=== PATIENT | male | born 1955 | race Caucasian/White ===

== ENCOUNTER 2019-10-07 06:56 | Emergency (ER) | payer MEDICAID, OTHER ==
[~2019-10-07] VITALS: Ht 165 cm; Wt 59.5 kg
[2019-10-07] MEDS ORDERED: LACTATED RINGERS 1,000 ML IV ONE (07:17)
[2019-10-07 07:33] LABS: BASOPHILS # (AUTO) 0.1 10^3/uL (0.0-0.1); BASOPHILS % (AUTO) 1 % (0-10); EOSINOPHILS # (AUTO) 0.1 10^3/uL (0.0-0.3); EOSINOPHILS % (AUTO) 1 % (0-10); HEMATOCRIT 42 % (40-54); HEMOGLOBIN 14.8 G/DL (13.3-17.7); LYMPHOCYTES # (AUTO) 1.8 X 10^3 (1.0-4.0); LYMPHOCYTES % (AUTO) 21 % (12-44); MEAN CORPUSCULAR HEMOGLOBIN 34 PG (25-34); MEAN CORPUSCULAR HGB CONC 35 G/DL (32-36); MEAN CORPUSCULAR VOLUME 96 FL (80-99); MONOCYTES # (AUTO) 0.7 X 10^3 (0.0-1.0); MONOCYTES % (AUTO) 8 % (0-12); NEUTROPHILS # (AUTO) 6.1 X 10^3 (1.8-7.8); NEUTROPHILS % (AUTO) 69 % (42-75); PLATELET COUNT 161 10^3/uL (130-400); RED CELL DISTRIBUTION WIDTH 13.2 % (10.0-14.5); WHITE BLOOD COUNT 8.7 10^3/uL (4.3-11.0)
[2019-10-07 07:41] LABS: PROTHROMBIN TIME PATIENT 13.6 SEC (12.2-14.7)
[2019-10-07 07:41] LABS: BILIRUBIN,URINE NEGATIVE (NEGATIVE); CLARITY,URINE CLEAR; COLOR,URINE YELLOW; GLUCOSE, URINE (UA) 3+ (NEGATIVE); KETONES,URINE NEGATIVE (NEGATIVE); LEUKOCYTE ESTERASE ,URINE NEGATIVE (NEGATIVE); NITRITE,URINE NEGATIVE (NEGATIVE); PROTEIN,URINE NEGATIVE (NEGATIVE)
--- NOTE | 2019-10-07 07:41 | ED General ---
General Chief Complaint: Abdominal/GI Problems Stated Complaint: ABD PAIN,SOB,FEELS COLD Nursing Triage Note: COMPLAINS OF ABD PAIN WITH VOMITING. RECENT MOVE FROM [place]. STATES HE WAS AT HIS DR THIS WEEK. Nursing Sepsis Screen: No Definite Risk Source of Information: Patient Exam Limitations: No Limitations History of Present Illness Date Seen by Provider: Oct 07, 2019 Time Seen by Provider: 07:18 Initial Comments Here with report of chills, body aches, cough, vomiting and overall not feeling well. Complains of shortness of breath or pain with deep breathing to his upper chest. Overall feels weak. Apparently had blood sugar of 1000 mg earlier this visit with Dr. Bocanegra on Saturday. He has been taking his short and long-acting insulin and apparently the sugar is a little better. Previously drank quite a bit of alcohol daily. Had quit but did have a few drinks of beer the other day. Denies drug abuse currently but does have history in the past. Denies diarrhea today but has had some intermittent diarrhea. Denies fevers but does states that he had significant chills especially yesterday. 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 Timing/Duration: 3-4 Days Severity: Moderate Modifying Factors: improves with Rest Associated Systoms: Chest Pain, Cough, Fever/Chills, Nausea/Vomiting; No Shortness of Air; Weakness Allergies and Home Medications Allergies Coded Allergies: No Known Drug Allergies (Unverified , 10/07/19) Patient Home Medication List Home Medication List Reviewed: Yes Review of Systems Review of Systems Constitutional: see HPI, chills; No fever; malaise, weakness EENTM: No nose congestion, No throat pain Respiratory: cough; No wheezing Cardiovascular: see HPI; No edema, No palpitations Gastrointestinal: diarrhea, nausea, vomiting Genitourinary: No dysuria, No frequency Musculoskeletal: no symptoms reported Skin: no symptoms reported All Other Systems Reviewed Negative Unless Noted: Yes Past Ddjgxjm-Yiyhao-Otczbc Hx Past Med/Social Hx: Reviewed Nursing Past Med/Soc Hx Patient Social History Alcohol Use: Past History Recreational Drug Use: No Smoking Status: Former Smoker Recent Foreign Travel: No Contact w/Someone Who Travel: No Recent Infectious Disease Expo: No Recent Hopitalizations: No Past Medical History Surgeries: Yes (SPLEENECTOMY) Orthopedic Respiratory: No Cardiac: Yes Hypertension Neurological: Yes Dementia Genitourinary: No Gastrointestinal: Yes Hepatitis Musculoskeletal: No Endocrine: Yes Diabetes, Insulin dep Psychosocial: Yes Bipolar Family Medical History Reviewed Nursing Family Hx No Pertinent Family Hx Physical Exam-Suspected Sepsis Physical Exam Vital Signs Vital Signs - First Documented 10/07/19 07:00 Temp 36.6 Pulse 92 Resp 16 B/P (MAP) 156/101 (119) Pulse Ox 95 O2 Delivery Room Air Capillary Refill : Less Than 3 Seconds Blood Pressure Mean: 119 Height, Weight, BMI Height: '" Weight: lbs. oz. kg; 21.00 BMI Method: General Appearance: No Apparent Distress, Thin HEENT: PERRL/EOMI, Pharynx Normal Neck: Non Tender, Supple Respiratory: Lungs Clear, Normal Breath Sounds Cardiovascular: No Murmur, Tachycardia Gastrointestinal: Non Tender, Soft, Abnormal Bowel Sounds (hyperactive); No Guarding, No Mass, No Rebound Back: No Vertebral Tenderness; No CVA Tenderness (L); CVA Tenderness (R) Extremity: Normal Inspection, Normal Range of Motion, Non Tender Neurologic/Psychiatric: Alert, Oriented x3 Skin: normal color, warm/dry Focused Exam Lactate Level 10/07/19 07:27: Lactic Acid Level 1.99 Lactic Acid Level Laboratory Tests Test 10/07/19 07:27 Lactic Acid Level 1.99 MMOL/L (0.50-2.00) Procedures/Interventions Splinting and Joint Reduction : Progress Right ankle with lateral rotation and posterior dislocation Progress/Results/Core Measures Suspected Sepsis Recent Fever Within 48 Hours: No Infection Criteria Present: None New/Unexplained Altered Menta: No Sepsis Screen: No Definite Risk SIRS Temperature: Pulse: 92 Respiratory Rate: 16 Laboratory Tests 10/07/19 07:05: White Blood Count 8.7 Blood Pressure 156 /101 Mean: 119 10/07/19 07:27: Lactic Acid Level 1.99 Laboratory Tests 10/07/19 07:05: Creatinine 0.93, INR Comment 1.0, Platelet Count 161, Total Bilirubin 0.8 Results/Orders Lab Results Laboratory Tests Test 10/07/19 07:05 10/07/19 07:27 10/07/19 07:34 Range/Units White Blood Count 8.7 4.3-11.0 10^3/uL Red Blood Count 4.38 4.35-5.85 10^6/uL Hemoglobin 14.8 13.3-17.7 G/DL Hematocrit 42 40-54 % Mean Corpuscular Volume 96 80-99 FL Mean Corpuscular Hemoglobin 34 25-34 PG Mean Corpuscular Hemoglobin Concent 35 32-36 G/DL Red Cell Distribution Width 13.2 10.0-14.5 % Platelet Count 161 130-400 10^3/uL Mean Platelet Volume 13.0 H 7.4-10.4 FL Neutrophils (%) (Auto) 69 42-75 % Lymphocytes (%) (Auto) 21 12-44 % Monocytes (%) (Auto) 8 0-12 % Eosinophils (%) (Auto) 1 0-10 % Basophils (%) (Auto) 1 0-10 % Neutrophils # (Auto) 6.1 1.8-7.8 X 10^3 Lymphocytes # (Auto) 1.8 1.0-4.0 X 10^3 Monocytes # (Auto) 0.7 0.0-1.0 X 10^3 Eosinophils # (Auto) 0.1 0.0-0.3 10^3/uL Basophils # (Auto) 0.1 0.0-0.1 10^3/uL Prothrombin Time 13.6 12.2-14.7 SEC INR Comment 1.0 0.8-1.4 Activated Partial Thromboplast Time 26 24-35 SEC Sodium Level 134 L 135-145 MMOL/L Potassium Level 3.8 3.6-5.0 MMOL/L Chloride Level 99 98-107 MMOL/L Carbon Dioxide Level 24 21-32 MMOL/L Anion Gap 11 5-14 MMOL/L Blood Urea Nitrogen 14 7-18 MG/DL Creatinine 0.93 0.60-1.30 MG/DL Estimat Glomerular Filtration Rate > 60 BUN/Creatinine Ratio 15 Glucose Level 389 H 70-105 MG/DL Calcium Level 9.2 8.5-10.1 MG/DL Corrected Calcium 9.8 8.5-10.1 MG/DL Total Bilirubin 0.8 0.1-1.0 MG/DL Aspartate Amino Transf (AST/SGOT) 421 H 5-34 U/L Alanine Aminotransferase (ALT/SGPT) 377 H 0-55 U/L Alkaline Phosphatase 114 40-136 U/L Troponin I < 0.028 <0.028 NG/ML Total Protein 7.6 6.4-8.2 GM/DL Albumin 3.2 3.2-4.5 GM/DL Lactic Acid Level 1.99 0.50-2.00 MMOL/L Urine Color YELLOW Urine Clarity CLEAR Urine pH 7.0 5-9 Urine Specific [place] 1.010 L 1.016-1.022 Urine Protein NEGATIVE NEGATIVE Urine Glucose (UA) 3+ H NEGATIVE Urine Ketones NEGATIVE NEGATIVE Urine Nitrite NEGATIVE NEGATIVE Urine Bilirubin NEGATIVE NEGATIVE Urine Urobilinogen 0.2 < = 1.0 MG/DL Urine Leukocyte Esterase NEGATIVE NEGATIVE Urine RBC (Auto) NEGATIVE NEGATIVE Urine RBC NONE /HPF Urine WBC NONE /HPF Urine Squamous Epithelial Cells RARE /HPF Urine Crystals PRESENT H /LPF Urine Amorphous Sediment RARE LAVERNE PHOSPHATE H /LPF Urine Bacteria NEGATIVE /HPF Urine Casts NONE /LPF Urine Mucus NEGATIVE /LPF Urine Culture Indicated NO Micro Results Microbiology 10/07/19 Influenza Types A,B Antigen (TEZ) - Final, Complete My Orders Orders - PRISCILLA DEWEY MD Cbc With Automated Diff (10/07/19 07:17) Comprehensive Metabolic Panel (10/07/19 07:17) Blood Culture (10/07/19 07:17) Sputum Culture (10/07/19 07:17) Urinalysis (10/07/19 07:17) Urine Culture (10/07/19 07:17) Protime With Inr (10/07/19 07:17) Partial Thromboplastin Time (10/07/19 07:17) Chest 1 View, Ap/Pa Only (10/07/19 07:17) Ed Iv/Invasive Line Start (10/07/19 07:17) Ekg Tracing (10/07/19 07:17) Troponin I (10/07/19 07:17) Vital Signs Adult Sepsis Patie Q15M (10/07/19 07:17) O2 (10/07/19 07:17) Remove Rings In Anticipation O (10/07/19 07:17) Lactic Acid Analyzer (10/07/19 07:17) Influenza A And B Antigens (10/07/19 07:17) Lactated Ringers (Lr 1000 Ml Iv Solution (10/07/19 07:17) Ct Abdomen/Pelvis W (10/07/19 08:17) Iohexol Injection (Omnipaque 350 Mg/Ml 1 (10/07/19 08:30) Received Contrast (Hold Metformin- Contr (10/07/19 08:30) Ns (Ivpb) (Sodium Chloride 0.9% Ivpb Bag (10/07/19 08:30) Medications Given in ED Current Medications Medications Dose Ordered Sig/Geno Route Start Time Stop Time Status Last Admin Dose Admin Iohexol 100 ml ONCE ONCE IV 10/07/19 08:30 10/07/19 08:31 DC 10/07/19 08:45 80 ML Lactated Ringer's 1,000 ml @ 0 mls/hr Q0M ONCE IV 10/07/19 07:17 10/07/19 07:24 DC 10/07/19 07:35 1,000 MLS/HR Sodium Chloride 100 ml ONCE ONCE IV 10/07/19 08:30 10/07/19 08:31 DC 10/07/19 08:45 80 ML Vital Signs/I&O 10/07/19 07:00 Temp 36.6 Pulse 92 Resp 16 B/P (MAP) 156/101 (119) Pulse Ox 95 O2 Delivery Room Air Capillary Refill : Less Than 3 Seconds Blood Pressure Mean: 119 Progress Note : Progress Note Seen and evaluated. IV, labs, EKG, chest x-ray, UA, influenza screen and LR [address] Monitor [address]. CT abdomen and pelvis ordered. 114: Labs reviewed. No significant findings other than nodularity of the liver. Does have a long alcohol history and I believe that is the cause of that. He is further evaluation through [facility] including for his elevated liver enzymes. Overall he feels better. Discharged home with return precautions. Patient verbalized understanding instructions and agreement with plan. ECG Initial ECG Impression Date: Oct 07, 2019 Initial ECG Impression Time: 07:23 Initial ECG Rate: 87 Initial ECG Rhythm: Normal Sinus Initial ECG Comparisson: No Previous ECG Available Comment Sinus rhythm with normal axis. No evidence of ST elevation [place]. No previous available for comparison. Interpreted by me. Diagnostic Imaging Diagonstic Imaging: Xray Plain Films/CT/US/NM/MRI: chest Comments [facility] [place], [place] NAME: WAYNE GIBSON MED REC#: [id number] PT STATUS: REG ER : 1955 PHYSICIAN: PRISCILLA DEWEY MD ADMIT DATE: 10/07/19/ER Draft Date of Exam:10/07/19 CHEST 1 VIEW, AP/PA ONLY INDICATION: Shortness of breath, abdominal pain. TECHNIQUE: Single view chest 7:50 AM. CORRELATION STUDY: None FINDINGS: The heart size, mediastinal configuration and pulmonary vascularity are within normal limits. The lungs are clear with no consolidating infiltrate. There is no significant effusion or pneumothorax. IMPRESSION: 1. Negative for acute abnormality of the chest. Dictated on workstation # [id number] Dict: 10/07/19 0758 Trans: 10/07/19 0758 DO [id number] Interpreted by: IWONA OLIVER DO Electronically signed by: Avani Imaging: CT Plain Films/CT/US/NM/MRI: abdomen, pelvis Comments [facility]. [place], [place] NAME: WAYNE GIBSON [facility] REC#: [id number] PT STATUS: REG ER : 1955 PHYSICIAN: PRISCILLA DEWEY MD ADMIT DATE: 10/07/19/ER Draft Date of Exam:10/07/19 CT ABDOMEN/PELVIS W EXAMINATION: CT Abdomen and Pelvis with intravenous contrast. TECHNIQUE: Multiple contiguous axial images were obtained through the abdomen and pelvis after the uneventful administration of intravenous contrast. All CT scans use one or more of the following dose optimizing techniques: automated exposure control, MA and/or KvP adjustment based on a patient size and exam type, or iterative reconstruction. HISTORY: Abdominal pain. COMPARISON: None available. FINDINGS: Limited views of the lower thorax show mild atelectasis. There is small fat-containing ascites indicating a hiatal hernia. The liver is enlarged and the surface appears mildly nodular. There is likely steatosis but the absence of the spleen makes diagnosis difficult as this is used as a reference standard for comparison. There is no biliary ductal dilation. The gallbladder is normal. The pancreas is normal. The spleen is surgically absent. The adrenal glands are normal. Cysts are seen in both kidneys. No suspicious renal lesions. There is no hydronephrosis. The urinary bladder is normal. There are no dilated loops of large or small bowel. No obstruction or inflammation. No free fluid in the pelvis. No free air. No abdominal or pelvic lymphadenopathy. The aorta is normal in caliber without aneurysm. There are no suspicious osseus lesions. IMPRESSION: 1. Enlarged liver with a mildly nodular surface which may represent fibrosis or cirrhosis. The liver is likely steatotic as well although the absence of the spleen (which is the internal standard) and post contrast exams makes diagnosis difficult. 2. Small fat-containing ascites containing a hiatal hernia. Dictated on workstation # [id number] Dict: 10/07/19 0900 Trans: 10/07/19912 [id number] Interpreted by: FERNANDEZ GASPAR MD Electronically signed by: Departure Impression Primary Impression: Upper respiratory infection Qualified Codes: J06.9 - Acute upper respiratory infection, unspecified Additional Impressions: Elevated liver enzymes Reflux gastritis Disposition: HOME, SELF-CARE Condition: Stable Departure-Patient Inst. Decision time for Depature: 10:20 Referrals: NO,LOCAL PHYSICIAN (PCP/Family) Primary Care Physician Patient Instructions: Viral Upper Respiratory Infection, Adult (DC), Acute Abdomen (Belly Pain), Adult (DC) Add. Discharge Instructions: All discharge instructions reviewed with patient and/or family. Voiced understanding. Follow up with [facility] regarding her liver enzymes. Continue your insulin dosing for your high blood sugar. Clear liquid or light diet today and then advance as tolerated. Continue to take stomach medicines as previous prescribed. Return for worse pain, fever, vomiting, weakness, breathing problems or other concerns as needed. Scripts Ondansetron HCl (Ondansetron HCl) 4 Mg Tablet 4 MG PO Q6H PRN for NAUSEA/VOMITING, #10 TAB 0 Refills Prov: PRISCILLA DEWEY MD 10/07/19 Copy Copies To 1: AMARA BOCANEGRA MD, TIMOTHY D MD Oct 07, 2019 07:41
[2019-10-07 07:45] LABS: ALANINE AMINOTRANSFERASE 377 U/L (0-55); ALBUMIN 3.2 GM/DL (3.2-4.5); ALKALINE PHOSPHATASE 114 U/L (40-136); BILIRUBIN,TOTAL 0.8 MG/DL (0.1-1.0); BUN/CREATININE RATIO 15; CALCIUM 9.2 MG/DL (8.5-10.1); CARBON DIOXIDE 24 MMOL/L (21-32); CHLORIDE 99 MMOL/L (98-107); CREATININE SERUM 0.93 MG/DL (0.60-1.30); GFR ESTIMATED > 60; GLUCOSE 389 MG/DL (70-105); POTASSIUM 3.8 MMOL/L (3.6-5.0); SODIUM 134 MMOL/L (135-145); TOTAL PROTEIN 7.6 GM/DL (6.4-8.2)
[2019-10-07 07:47] LABS: BACTERIA,URINE NEGATIVE /HPF; SQUAMOUS EPITHELIAL CELL,UR RARE /HPF
[2019-10-07 07:48] LABS: AMORPHOUS SEDIMENT,UR RARE AMOR PHOSPHATE /LPF
--- NOTE | 2019-10-07 07:59 | Diagnostic Imaging Report ---
INDICATION: Shortness of breath, abdominal pain. TECHNIQUE: Single view chest 7:50 AM. CORRELATION STUDY: None FINDINGS: The heart size, mediastinal configuration and pulmonary vascularity are within normal limits. The lungs are clear with no consolidating infiltrate. There is no significant effusion or pneumothorax. IMPRESSION: 1. Negative for acute abnormality of the chest. Dictated by: Dictated on workstation # [id number]
[2019-10-07] MEDS ORDERED: NS 100 ML (IVPB) BAG IV ONE (08:30)
[2019-10-07] MEDS ORDERED: HOLD METFORMIN - RECEIVED CONTRAST 20 ML VIAL IV SCH (08:30)
[2019-10-07] MEDS ORDERED: IOHEXOL 350 MG/ML 100 ML (OMNIPAQUE 350) VIAL IV ONE (08:30)
--- NOTE | 2019-10-07 09:13 | Diagnostic Imaging Report ---
EXAMINATION: CT Abdomen and Pelvis with intravenous contrast. TECHNIQUE: Multiple contiguous axial images were obtained through the abdomen and pelvis after the uneventful administration of intravenous contrast. All CT scans use one or more of the following dose optimizing techniques: automated exposure control, MA and/or KvP adjustment based on a patient size and exam type, or iterative reconstruction. HISTORY: Abdominal pain. COMPARISON: None available. FINDINGS: Limited views of the lower thorax show mild atelectasis. There is small fat-containing ascites indicating a hiatal hernia. The liver is enlarged and the surface appears mildly nodular. There is likely steatosis but the absence of the spleen makes diagnosis difficult as this is used as a reference standard for comparison. There is no biliary ductal dilation. The gallbladder is normal. The pancreas is normal. The spleen is surgically absent. The adrenal glands are normal. Cysts are seen in both kidneys. No suspicious renal lesions. There is no hydronephrosis. The urinary bladder is normal. There are no dilated loops of large or small bowel. No obstruction or inflammation. No free fluid in the pelvis. No free air. No abdominal or pelvic lymphadenopathy. The aorta is normal in caliber without aneurysm. There are no suspicious osseus lesions. IMPRESSION: 1. Enlarged liver with a mildly nodular surface which may represent fibrosis or cirrhosis. The liver is likely steatotic as well although the absence of the spleen (which is the internal standard) and post contrast exams makes diagnosis difficult. 2. Small fat-containing ascites containing a hiatal hernia. Dictated by: Dictated on workstation # [id number]
[2019-10-07] MEDS ORDERED: ONDA4TAB10 PO (10:22)
[2019-10-07 10:35] VITALS: BP 145/96
== END 2019-10-07 10:35 | disposition home or self-care (01) ==
LOC: ER 06:59
DX: J06.9 Acute upper respiratory infection, unspecified (principal); R74.8 Abnormal levels of other serum enzymes; K21.9 Gastro-esophageal reflux disease without esophagitis; I10 Essential (primary) hypertension; E11.9 Type 2 diabetes mellitus without complications; F31.9 Bipolar disorder, unspecified; F03.90 Unspecified dementia, unspecified severity, without behavioral disturbance, psychotic disturbance, mood disturbance, and anxiety; Z87.891 Personal history of nicotine dependence; Z90.81 Acquired absence of spleen
CPT/HCPCS: 36415; 71045; 74177; 80053; 81000; 83605; 84484; 85025; 85610; 85730; 87040; 87088; 87804; 93005

== ENCOUNTER → 2019-11-27 | Outpatient (CLI) | payer MEDICAID ==
[~2019-11-27] MED LIST: ONDA-105 PO
--- NOTE | 2019-11-27 08:49 | Diagnostic Imaging Report ---
PROCEDURE: CT head without contrast. TECHNIQUE: Multiple contiguous axial images were obtained through the brain without the use of intravenous contrast. Auto Exposure Controls were utilized during the CT exam to meet ALARA standards for radiation dose reduction. INDICATION: Memory difficulty. No prior studies are available for comparison. FINDINGS: Ventricles and sulci are appropriate for the patient's age. No sulcal effacement or midline shift is identified. No acute intra-axial or extra-axial hemorrhage is detected. Periventricular hypodensities noted, likely on the basis of chronic microvascular ischemia. Cisterns are patent. Visualized paranasal sinuses are clear. IMPRESSION: Changes of chronic microvascular ischemia. No acute intracranial process is detected. Dictated by: Dictated on workstation # [id number]
== END ==
LOC: RAD 08:11
PROVIDERS: ATTEND Internal Medicine
DX: I67.82 Cerebral ischemia (principal); R41.3 Other amnesia
CPT/HCPCS: 70450

== ENCOUNTER 2019-12-03 07:31 | Observation (INO) | payer MEDICAID ==
[~2019-12-03] VITALS: Ht 165.1 cm; Wt 75.5 kg
--- OUTSIDE RECORDS SUMMARY | 2019-12-03 07:36 | XMS REPORT | Continuity of Care Document ---
Author Organization Unknown Address Unknown Phone Unavailable Allergies Active Description Code Type Severity Reaction Onset Reported/Identified Relationship to Patient Clinical Status Yes No Known Drug Allergies [id number] Drug Allergy Unknown N/A 10/07/2019 Medications There is no data. Problems Date Dx Coded Attending Type Code Diagnosis Diagnosed By 10/07/2019 PRISCILLA DEWEY MD, Ot E11.9 TYPE 2 DIABETES MELLITUS WITHOUT COMPLIC 10/07/2019 PRISCILLA DEWEY MD Ot F03.90 UNSPECIFIED DEMENTIA WITHOUT BEHAVIORAL 10/07/2019 PRISCILLA DEWEY MD Ot F31.9 BIPOLAR DISORDER, UNSPECIFIED 10/07/2019 PRISCILLA DEWEY MD Ot I10 ESSENTIAL (PRIMARY) HYPERTENSION 10/07/2019 PRISCILLA DEWEY MD Ot J06.9 ACUTE UPPER RESPIRATORY INFECTION, UNSPE 10/07/2019 PRISCILLA DEWEY MD Ot K21.9 GASTRO-ESOPHAGEAL REFLUX DISEASE WITHOUT 10/07/2019 PRISCILLA DEWEY MD Ot R06.02 SHORTNESS OF BREATH 10/07/2019 PRISCILLA DEWEY MD Ot R74.8 ABNORMAL LEVELS OF OTHER SERUM ENZYMES 10/07/2019 PRISCILLA DEWEY MD Ot Z87.891 PERSONAL HISTORY OF NICOTINE DEPENDENCE 10/07/2019 PRISCILLA DEWEY MD Ot Z90.81 ACQUIRED ABSENCE OF SPLEEN 10/09/2019 PRISCILLA DEWEY MD Ot E11.9 TYPE 2 DIABETES MELLITUS WITHOUT COMPLIC 10/09/2019 PRISCILLA DEWEY MD Ot F03.90 UNSPECIFIED DEMENTIA WITHOUT BEHAVIORAL 10/09/2019 PRISCILLA DEWEY MD Ot F31.9 BIPOLAR DISORDER, UNSPECIFIED 10/09/2019 PRISCILLA DEWEY MD Ot I10 ESSENTIAL (PRIMARY) HYPERTENSION 10/09/2019 PRISCILLA DEWEY MD Ot J06.9 ACUTE UPPER RESPIRATORY INFECTION, UNSPE 10/09/2019 PRISCILLA DEWEY MD Ot K21.9 GASTRO-ESOPHAGEAL REFLUX DISEASE WITHOUT 10/09/2019 PRISCILLA DEWEY MD Ot R06.02 SHORTNESS OF BREATH 10/09/2019 PRISCILLA DEWEY MD Ot R74.8 ABNORMAL LEVELS OF OTHER SERUM ENZYMES 10/09/2019 PRISCILLA DEWEY MD Ot Z87.891 PERSONAL HISTORY OF NICOTINE DEPENDENCE 10/09/2019 PRISCILLA DEWEY MD Ot Z90.81 ACQUIRED ABSENCE OF SPLEEN 12/01/2019 AMARA BOCANEGRA MD Ot I67.82 CEREBRAL ISCHEMIA 12/01/2019 AMARA BOCANEGRA MD Ot R41 .3 OTHER AMNESIA Procedures There is no data. Results Test Result Range Complete blood count (CBC) with automate d white blood cell (WBC) differential - 10/07/19 07:05 Blood leukocytes automated count (number/volume) 8.7 10*3/uL 4.3-11.0 Blood erythrocytes automated count (number/volume) 4.38 10*6/uL 4.35-5.85 Venous blood hemoglobin measurement (mass/volume) 14.8 g/dL 13.3-17.7 Blood hematocrit (volume fraction) 42 % 40-54 Automated erythrocyte mean corpuscular volume 96 [ foz_us] 80-99 Automated erythrocyte mean corpuscular h emoglobin (mass per erythrocyte) 34 pg 25-34 Automated erythrocyte mean corpuscular h emoglobin concentration measurement (mass/volume) 35 g/dL 32-36 Automated erythrocyte distribution width ratio 13. 2 % 10.0- 14.5 Automated blood platelet count (count/volume) 161 10*3/uL 130-400 Automated blood platelet mean volume measurement 13.0 [foz_us] 7.4-10.4 Automated blood neutrophils/100 leukocytes 69 % 42-75 Automated blood lymphocytes/100 leukocytes 21 % 12-44 Blood monocytes/100 leukocytes 8 % 0-12 Automated blood eosinophils/100 leukocytes 1 % 0-10 Automated blood basophils/100 leukocytes 1 % 0-10 Blood neutrophils automated count (number/volume) 6.1 10*3 1.8-7.8 Blood lymphocytes automated count (number/volume) 1.8 10*3 1.0-4.0 Blood monocytes automated count (number/volume) 0. 7 10*3 0.0-1.0 Automated eosinophil count 0.1 10*3/uL 0 .0-0.3 Automated blood basophil count (count/volume) 0.1 10*3/uL 0.0-0.1 PT panel in platelet poor plasma by coag ulation assay - 10/07/19 07:05 Prothrombin time (PT) in platelet poor plasma by coagu lation assay 13.6 s 12.2-14.7 INR in platelet poor plasma or blood by coagulation as say 1.0 0.8-1.4 Activated partial thromboplastin time (a PTT) in platelet poor plasma bycoagulation assay - 10/07/19 07:05 Activated partial thromboplastin time (a PTT) in platelet poor plasma bycoagulation assay 26 s 24-35 Comprehensive metabolic panel - 10/07/19 07:05 Serum or plasma sodium measurement (moles/volume) 134 mmol/L 135-145 Serum or plasma potassium measurement (moles/volume) 3.8 mmol/L 3.6-5.0 Serum or plasma chloride measurement (moles/volume) 99 mmol/L 98-107 Carbon dioxide 24 mmol/L 21-32 Serum or plasma anion gap determination (moles/volume) 11 mmol/L 5-14 Serum or plasma urea nitrogen measurement (mass/volume ) 14 mg/dL 7-18 Serum or plasma creatinine measurement (mass/volume) 0.93 mg/dL 0.60-1.30 Serum or plasma urea nitrogen/creatinine mass ratio 15 NRG Serum or plasma creatinine measurement w ith calculation of estimated glomerular filtration rate > NRG Serum or plasma glucose measurement (mass/volume) 389 mg/dL 70-105 Serum or plasma calcium measurement (mass/volume) 9.2 mg/dL 8.5-10.1 Serum or plasma total bilirubin measurement (mass/volu me) 0.8 mg/dL 0.1-1.0 Serum or plasma alkaline phosphatase jhon surement (enzymatic activity/volume) 114 U/L 40-136 Serum or plasma aspartate aminotransfera se measurement (enzymatic activity/volume) 421 U/L 5-34 Serum or plasma alanine aminotransferase measurement (enzymatic activity/volume) 377 U/L 0-55 Serum or plasma protein measurement (mass/volume) 7.6 g/dL 6.4-8.2 Serum or plasma albumin measurement (mass/volume) 3.2 g/dL 3.2-4.5 CALCIUM CORRECTED 9.8 mg/dL 8.5-10.1 Serum or plasma troponin i.cardiac measu rement (mass/volume) - 10/07/19 07:05 Serum or plasma troponin i.cardiac measurement (mass/v olume) < ng/mL <0.028 Blood lactic acid measurement (moles/vol ume) - 10/07/19 07:27 Blood lactic acid measurement (moles/volume) 1.99 mmol/L 0.50-2.00 Bacterial blood culture - 10/07/19 07:27 QUANTITY OF GROWTH Isolated NRG Bacterial blood culture [id number] NRG Influenza virus A and B antigen detectio n - 10/07/19 07:30 FLU RESULT NEGATIVE FOR INFLUENZA A AND B ANTIGENS BY IA NRG Complete urinalysis with reflex to cultu re - 10/07/19 07:34 Urine color determination YELLOW NRG Urine clarity determination CLEAR NR G Urine pH measurement by test strip 7.0 5-9 Specific gravity of urine by test strip 1.010 1.016-1.022 Urine protein assay by test strip, semi-quantitative NEGATIVE NEGATIVE Urine glucose detection by automated test strip 3+ NEGATIVE Erythrocytes detection in urine sediment by light micr oscopy NEGATIVE NEGATIVE Urine ketones detection by automated test strip NE GATIVE NEGATIVE Urine nitrite detection by test strip NEGATIVE NEGATIVE Urine total bilirubin detection by test strip NEGA TIVE NEGATIVE Urine urobilinogen measurement by automated test strip (mass/volume) 0.2 mg/dL < = 1.0 Urine leukocyte esterase detection by dipstick NEG ATIVE NEGATIVE Automated urine sediment erythrocyte cou nt by microscopy (number/high power field) NONE NRG Automated urine sediment leukocyte count by microscopy (number/high power field) NONE NRG Bacteria detection in urine sediment by light microsco py NEGATIVE NRG Squamous epithelial cells detection in u rine sediment by light microscopy RARE NRG Crystals detection in urine sediment by light microsco py PRESENT NRG Casts detection in urine sediment by light microscopy NONE NRG Mucus detection in urine sediment by light microscopy NEGATIVE NRG Complete urinalysis with reflex to culture NO NRG Amorphous sediment detection in urine sediment by ligh t microscopy RARE LAVERNE PHOSPHATE NRG Bacterial urine culture - 10/07/19 07:34 Bacterial urine culture NG NRG Bacterial blood culture - 10/07/19 08:07 Bacterial blood culture NG NRG Encounters ACCT No. Visit Date/Time Discharge Status Pt. Type Provider Facility Loc./Unit Complaint [id number] 11/27/2019 08:11:00 020 23:59:59 CLS Outpatient SAHRA MITCHELL, AMARA Martinez [facility] RAD MEMORY LOSS [id number] 10/07/2019 06:59:00 020 10:35:00 DIS Emergency MACO MITCHELL, PRISCILLA Burr [facility] ER ABD PAIN,SOB,FE ELS COLD [id number] 12/04/2019 11:45:00 P EN Preadshelley SALOMON MD, GARRISON Ascencio [facility] RAD RENAL CYST
[2019-12-03] MEDS ORDERED: LABETALOL HCL 20 MG/4 ML VIAL IV STA (07:50)
[2019-12-03 07:59] LABS: BASOPHILS # (AUTO) 0.1 10^3/uL (0.0-0.1); BASOPHILS % (AUTO) 2 % (0-10); EOSINOPHILS # (AUTO) 0.3 10^3/uL (0.0-0.3); EOSINOPHILS % (AUTO) 4 % (0-10); HEMATOCRIT 48 % (40-54); HEMOGLOBIN 16.6 G/DL (13.3-17.7); LYMPHOCYTES # (AUTO) 3.6 X 10^3 (1.0-4.0); LYMPHOCYTES % (AUTO) 45 % (12-44); MEAN CORPUSCULAR HEMOGLOBIN 34 PG (25-34); MEAN CORPUSCULAR HGB CONC 35 G/DL (32-36); MEAN CORPUSCULAR VOLUME 99 FL (80-99); MEAN PLATELET VOLUME 11.1 FL (7.4-10.4); MONOCYTES # (AUTO) 1.1 X 10^3 (0.0-1.0); MONOCYTES % (AUTO) 13 % (0-12); NEUTROPHILS # (AUTO) 2.8 X 10^3 (1.8-7.8); NEUTROPHILS % (AUTO) 35 % (42-75); PLATELET COUNT 240 10^3/uL (130-400); RED CELL DISTRIBUTION WIDTH 13.7 % (10.0-14.5); WHITE BLOOD COUNT 7.9 10^3/uL (4.3-11.0)
[2019-12-03 08:05] LABS: FIBRIN DEGRADATION PRODUCTS 0.39 UG/ML (0.00-0.49); PROTHROMBIN TIME PATIENT 13.9 SEC (12.2-14.7)
--- NOTE | 2019-12-03 08:06 | Diagnostic Imaging Report ---
INDICATION: Stroke COMPARISON: 10/07/2019 TECHNIQUE: Single radiograph of the chest dated 12/03/2019 FINDINGS: The cardiac silhouette is within normal limits in size. No significant pulmonary vascular congestion. The lungs are clear. No pleural effusion. No pneumothorax. No acute osseous abnormality. IMPRESSION: Stable examination without acute cardiopulmonary abnormality. Dictated by: Dictated on workstation # [id number]
--- NOTE | 2019-12-03 08:06 | Diagnostic Imaging Report ---
PROCEDURE: CT head wo r/o stroke. TECHNIQUE: Multiple contiguous axial images were obtained through the brain without the use of intravenous contrast. Auto Exposure Controls were utilized during the CT exam to meet ALARA standards for radiation dose reduction. INDICATION: Right paresthesia and weakness Comparison is made to study of 11/27/2019 FINDINGS: Ventricles and sulci are prominent with continued low density within the deep white matter of both cerebral hemispheres. Localized low density in the subcortical and periventricular white matter of the right frontal lobe are most pronounced but unchanged. There is no evidence of intracranial hemorrhage. There is atherosclerotic calcification within distal internal carotid and vertebral arteries. Calvarium is intact and the visualized paranasal sinuses are clear. Debris is present within the left external auditory canal possibly related to cerumen. IMPRESSION: Stable chronic findings without CT evidence of acute intracranial abnormality. Dictated by: Dictated on workstation # [id number]
--- NOTE | 2019-12-03 08:11 | ED Neurological Problem ---
General Chief Complaint: Neuro-Stroke Like Symptoms Stated Complaint: R SIDE NUMBNESS;WEAKNESS Source: patient, family Exam Limitations: no limitations History of Present Illness Date Seen by Provider: Dec 03, 2019 Time Seen by Provider: 07:39 Initial Comments Here with report of right sided numbness and weakness. Noted that at about 7 AM he was drinking coffee and everything was fine and shortly afterwards he was drinking another cup of coffee and it was draining down the side of his face. This occurred around 7:15. At that time he started to feel numbness in his right hand and face. He is able to walk and has his baseline difficulty. He does occasionally stumble and that does not seem to be worse. He was able to walk to the car and walking in from the car. Denies vision problems. Denies chest pain, nausea, vomiting or diarrhea. Has not had his morning insulin dosing but states that he did take his blood pressure medicine. No recent history of falls or injury. Timing/Duration: 1/2 hour Severity: moderate Associated Symptoms: No confusion, No fever/chills, No muscle spasms, No nausea/vomiting; paresthesia; No seizures; slurred speech, tingling in l egs/feet; No trouble walking, No vision changes, No weakness Allergies and Home Medications Allergies Coded Allergies: No Known Drug Allergies (Unverified , 10/07/19) Home Medications Ondansetron HCl 4 Mg Tablet, 4 MG PO Q6H PRN for NAUSEA/VOMITING Prescribed by: PRISCILLA DEWEY on 10/07/19 1022 Patient Home Medication List Home Medication List Reviewed: Yes Review of Systems Review of Systems Constitutional: see HPI; No chills, No fever Eyes: No Symptoms Reported Ears, Nose, Mouth, Throat: see HPI; denies mouth pain, denies throat pain Respiratory: No cough, No short of breath Cardiovascular: No chest pain, No edema, No palpitations Gastrointestinal: No abdominal pain, No nausea, No vomiting Genitourinary: no symptoms reported Musculoskeletal: No back pain, No muscle pain; muscle weakness; No neck pain Skin: no symptoms reported Psychiatric/Neurological: See HPI, Headache (had mild, undefined headache last night that is resolved today.), Numbness Endocrine: No Symptoms Reported All Other Systems Reviewed Negative Unless Noted: Yes Past Ivgoxun-Eihgyd-Zfjmnw Hx Past Med/Social Hx: Reviewed Nursing Past Med/Soc Hx Patient Social History Alcohol Use: Past History Recreational Drug Use: No Smoking Status: Former Smoker Former Smoker, Quit: Dec 03, 1989 Recent Foreign Travel: No Contact w/Someone Who Travel: No Recent Hopitalizations: No Past Medical History Surgeries: Yes (SPLEENECTOMY, r pointer finger amputation) Orthopedic Respiratory: No Cardiac: Yes Hypertension Neurological: Yes Dementia Genitourinary: No Gastrointestinal: Yes Hepatitis Musculoskeletal: No Endocrine: Yes Diabetes, Insulin dep Psychosocial: Yes Bipolar Integumentary: No Family Medical History Reviewed Nursing Family Hx No Pertinent Family Hx Physical Exam Vital Signs Vital Signs - First Documented 12/03/19 07:32 Temp 36.7 Pulse 100 Resp 16 B/P (MAP) 179/109 (132) Pulse Ox 93 Capillary Refill : Height, Weight, BMI Height: '" Weight: lbs. oz. kg; 21.00 BMI Method: General Appearance: WD/WN, no apparent distress HEENT: PERRL/EOMI, pharynx normal Neck: full range of motion, supple Respiratory: lungs clear, normal breath sounds Cardiovascular: no murmur, tachycardia Peripheral Pulses: 2+ Dorsalis Pedis (R), 2+ Left Dors-Pedis (L), 2+ Radial Pulses (R), 2+ Radial Pulses (L) Gastrointestinal: non tender, soft Extremities: non-tender, normal inspection Neurologic/Psychiatric: alert, normal mood/affect, oriented x 3 Crainal Nerves: normal hearing, normal speech, PERRL Coordination/Gait: normal finger to nose, normal gait Motor/Sensory: sensory deficit (right facial) Skin: normal color, warm/dry Progress/Results/Core Measures Results/Orders Lab Results Laboratory Tests Test 12/03/19 07:39 12/03/19 07:46 12/03/19 09:26 Range/Units White Blood Count 7.9 4.3-11.0 10^3/uL Red Blood Count 4.88 4.35-5.85 10^6/uL Hemoglobin 16.6 13.3-17.7 G/DL Hematocrit 48 40-54 % Mean Corpuscular Volume 99 80-99 FL Mean Corpuscular Hemoglobin 34 25-34 PG Mean Corpuscular Hemoglobin Concent 35 32-36 G/DL Red Cell Distribution Width 13.7 10.0-14.5 % Platelet Count 240 130-400 10^3/uL Mean Platelet Volume 11.1 H 7.4-10.4 FL Neutrophils (%) (Auto) 35 L 42-75 % Lymphocytes (%) (Auto) 45 H 12-44 % Monocytes (%) (Auto) 13 H 0-12 % Eosinophils (%) (Auto) 4 0-10 % Basophils (%) (Auto) 2 0-10 % Neutrophils # (Auto) 2.8 1.8-7.8 X 10^3 Lymphocytes # (Auto) 3.6 1.0-4.0 X 10^3 Monocytes # (Auto) 1.1 H 0.0-1.0 X 10^3 Eosinophils # (Auto) 0.3 0.0-0.3 10^3/uL Basophils # (Auto) 0.1 0.0-0.1 10^3/uL Prothrombin Time 13.9 12.2-14.7 SEC INR Comment 1.0 0.8-1.4 Activated Partial Thromboplast Time 31 24-35 SEC D-Dimer 0.39 0.00-0.49 UG/ML Sodium Level 135 135-145 MMOL/L Potassium Level 4.3 3.6-5.0 MMOL/L Chloride Level 105 98-107 MMOL/L Carbon Dioxide Level 20 L 21-32 MMOL/L Anion Gap 10 5-14 MMOL/L Blood Urea Nitrogen 23 H 7-18 MG/DL Creatinine 1.01 0.60-1.30 MG/DL Estimat Glomerular Filtration Rate > 60 BUN/Creatinine Ratio 23 Glucose Level 240 H 70-105 MG/DL Calcium Level 9.4 8.5-10.1 MG/DL Corrected Calcium 9.7 8.5-10.1 MG/DL Total Bilirubin 0.6 0.1-1.0 MG/DL Aspartate Amino Transf (AST/SGOT) 109 H 5-34 U/L Alanine Aminotransferase (ALT/SGPT) 98 H 0-55 U/L Alkaline Phosphatase 91 40-136 U/L Troponin I < 0.028 <0.028 NG/ML Total Protein 8.5 H 6.4-8.2 GM/DL Albumin 3.6 3.2-4.5 GM/DL Glucometer 252 H 70-110 MG/DL Urine Color YELLOW Urine Clarity CLEAR Urine pH 6.0 5-9 Urine Specific [place] 1.015 L 1.016-1.022 Urine Protein NEGATIVE NEGATIVE Urine Glucose (UA) 3+ H NEGATIVE Urine Ketones NEGATIVE NEGATIVE Urine Nitrite NEGATIVE NEGATIVE Urine Bilirubin NEGATIVE NEGATIVE Urine Urobilinogen 0.2 < = 1.0 MG/DL Urine Leukocyte Esterase NEGATIVE NEGATIVE Urine RBC (Auto) NEGATIVE NEGATIVE Urine RBC RARE /HPF Urine WBC RARE /HPF Urine Crystals NONE /LPF Urine Bacteria NEGATIVE /HPF Urine Casts NONE /LPF Urine Mucus NEGATIVE /LPF Urine Culture Indicated NO My Orders Orders - PRISCILLA DEWEY MD Cbc With Automated Diff (12/03/19 07:50) Protime With Inr (12/03/19 07:50) Partial Thromboplastin Time (12/03/19 07:50) Comprehensive Metabolic Panel (12/03/19 07:50) Fibrin Degradation Products (12/03/19 07:50) Troponin I (12/03/19 07:50) Ua Culture If Indicated (12/03/19 07:50) Chest 1 View, Ap/Pa Only (12/03/19 07:50) Ekg Tracing (12/03/19 07:50) Nothing By Mouth (12/03/19 Lunch) Accucheck Stat ONCE (12/03/19 07:50) Ed Iv/Invasive Line Start (12/03/19 07:50) Vital Signs Stroke Patient Q15M (12/03/19 07:50) Ct Head Wo-R/O Stroke (12/03/19 07:50) O2 (12/03/19 07:50) Intake & Output 06,14,22 (12/03/19 07:50) Labetalol Injection (Normodyne Injection (12/03/19 07:50) Monitor-Rhythm Ecg Trace Only (12/03/19 07:50) Dysphagia Screening Tool (12/03/19 07:50) Lipid Panel (12/04/19 06:00) Ct Angio Head/Neck (12/03/19 08:38) Lactated Ringers (Lr 1000 Ml Iv Solution (12/03/19 08:38) Iohexol Injection (Omnipaque 350 Mg/Ml 1 (12/03/19 09:00) Received Contrast (Hold Metformin- Contr (12/03/19 09:00) Sodium Chloride Flush (Catheter Flush Sy (12/03/19 09:00) Ns (Ivpb) (Sodium Chloride 0.9% Ivpb Bag (12/03/19 09:00) Valacyclovir Tablet (Valtrex Tablet) (12/03/19 10:15) Prednisone Tablet (Deltasone Tablet) (12/03/19 10:30) Medications Given in ED Current Medications Medications Dose Ordered Sig/Geno Route Start Time Stop Time Status Last Admin Dose Admin Iohexol 100 ml ONCE ONCE IV 12/03/19 09:00 12/03/19 09:01 DC 12/03/19 09:21 75 ML Sodium Chloride 100 ml ONCE ONCE IV 12/03/19 09:00 12/03/19 09:01 DC 12/03/19 09:21 100 ML Vital Signs/I&O 12/03/19 07:32 Temp 36.7 Pulse 100 Resp 16 B/P (MAP) 179/109 (132) Pulse Ox 93 Progress Progress Note : Progress Note Seen and evaluated. Stroke activation after determining onset. IV, labs, UA, EKG, chest x-ray and CT head ordered. Accu-Chek done. Patient 2 on stroke scale for right facial droop and numbness. This appears to spare the forehead. Patient is low on stroke scale although it is inside a TPA window. Given current findings, risk may exceed benefit. Pending CT and we will rediscuss and reevaluate at that time. 0840: I did discuss the case with the on-call stroke neurologist at [facility]. We have reviewed symptoms and current findings. Patient does have increased findings in the for head on the right which may be more consistent with Farley's palsy but still has the right arm numbness. After discussion, stroke neurologist agrees with my assessment that TPA risk exceeds benefit unless there is significant deficit. I did discuss all of this at length with the patient and family. Given his rather minor deficit, he would prefer not to do TPA given the risk and I agree. We will go ahead and get CT angiogram of the head and neck. Monitor patient. 1010: Patient does have increased findings of the forehead and this does appear to be more Farley's palsy like although does have the right arm numbness still as discussed earlier. I did discuss the case with Dr. Lepe. We both agree that admission is indicated with MRI to follow, likely tomorrow morning. We will go ahead and initiate treatment for Farley's palsy. Valacyclovir 1000 mg by mouth ordered. I will initiate prednisone 60 mg by mouth now and Dr. Lepe will continue the appropriate taper. Patient will need management of his glucose. He did receive LR 1 L bolus and we will continue that at 75 mL an hour with sliding scale. Dysphagia screen done. He is not having any choking and is able to swallow. He does lose a little bit of liquid with the facial droop on the right but is not having difficulty managing it otherwise. We will allow for diet. Sliding scale insulin protocol ordered. Admit, observation status. Patient and family agree with plan. Initial ECG Impression Date: Dec 03, 2019 Initial ECG Impression Time: 07:36 Initial ECG Rate: 101 Initial ECG Rhythm: S.Tach Comment Sinus tachycardia with normal axis. No evidence of ST elevation [place]. Change in morphology in lead 3 and aVF since previous of 10/07/19. No evidence of ST el evation [place]. Interpreted by me. Diagnostic Imaging Diagonstic Imaging: CT Plain Films/CT/US/NM/MRI: head Comments [facility] [place] NAME: WAYNE GIBSON [facility] REC#: [id number] PT STATUS: REG ER : 1955 PHYSICIAN: PRISCILLA DEWEY MD ADMIT DATE: 12/03/19/ER Signed Date of Exam:12/03/19 CT HEAD WO-R/O STROKE PROCEDURE: CT head wo r/o stroke. TECHNIQUE: Multiple contiguous axial images were obtained through the brain without the use of intravenous contrast. Auto Exposure Controls were utilized during the CT exam to meet ALARA standards for radiation dose reduction. INDICATION: Right paresthesia and weakness Comparison is made to study of 11/27/2019 FINDINGS: Ventricles and sulci are prominent with continued low density within the deep white matter of both cerebral hemispheres. Localized low density in the subcortical and periventricular white matter of the right frontal lobe are most pronounced but unchanged. There is no evidence of intracranial hemorrhage. There is atherosclerotic calcification within distal internal carotid and vertebral arteries. Calvarium is intact and the visualized paranasal sinuses are clear. Debris is present within the left external auditory canal possibly related to cerumen. IMPRESSION: Stable chronic findings without CT evidence of acute intracranial abnormality. Dictated by: Dictated on workstation # [id number] Dict: 12/03/19 0800 Trans: 12/03/19 0808 SA [id number] Interpreted by: CELIA DIAZ MD Electronically signed by: CELIA DIAZ MD 12/03/19 0808 Diagonstic Imaging: Xray Plain Films/CT/US/NM/MRI: chest Comments [facility] [place] NAME: WAYNE GIBSON [facility] REC#: [id number] PT STATUS: REG ER : 1955 PHYSICIAN: PRISCILLA DEWEY MD ADMIT DATE: 12/03/19/ER Draft Date of Exam:12/03/19 CHEST 1 VIEW, AP/PA ONLY INDICATION: Stroke COMPARISON: 10/07/2019 TECHNIQUE: Single radiograph of the chest dated 12/03/2019 FINDINGS: The cardiac silhouette is within normal limits in size. No significant pulmonary vascular congestion. The lungs are clear. No pleural effusion. No pneumothorax. No acute osseous abnormality. IMPRESSION: Stable examination without acute cardiopulmonary abnormality. Dictated on workstation # [id number] Dict: 12/03/19 0802 Trans: 12/03/19 0806 GER [id number] Interpreted by: LUIS FERNANDO JOSE MD Electronically signed by: Departure Communication (Admissions) Time/Spoke to Admitting Phy: 10:10 Impression Primary Impression: Weakness on right side of face Additional Impression: Farley's palsy Disposition: ADMITTED INPATIENT Condition: Stable Admissions Decision to Admit Reason: Admit from ER (General) Decision to Admit/Date: Dec 03, 2019 Time/Decision to Admit Time: 10:10 Departure-Patient Inst. Referrals: AMARA BOCANEGRA MD (PCP) Primary Care Physician NO,LOCAL PHYSICIAN (Family) Primary Care Physician PRISCILLA DEWEY MD Dec 03, 2019 08:11
[2019-12-03 08:12] LABS: ALANINE AMINOTRANSFERASE 98 U/L (0-55); ALBUMIN 3.6 GM/DL (3.2-4.5); ALKALINE PHOSPHATASE 91 U/L (40-136); BILIRUBIN,TOTAL 0.6 MG/DL (0.1-1.0); BUN/CREATININE RATIO 23; CALCIUM 9.4 MG/DL (8.5-10.1); CARBON DIOXIDE 20 MMOL/L (21-32); CHLORIDE 105 MMOL/L (98-107); CREATININE SERUM 1.01 MG/DL (0.60-1.30); GFR ESTIMATED > 60; GLUCOSE 240 MG/DL (70-105); POTASSIUM 4.3 MMOL/L (3.6-5.0); SODIUM 135 MMOL/L (135-145); TOTAL PROTEIN 8.5 GM/DL (6.4-8.2)
[2019-12-03] MEDS ORDERED: LACTATED RINGERS 1,000 ML IV STA (08:38)
[2019-12-03] MEDS ORDERED: CATHETER FLUSH 10 ML SYR IV PRN (09:00)
[2019-12-03] MEDS ORDERED: NS 100 ML (IVPB) BAG IV ONE (09:00)
[2019-12-03] MEDS ORDERED: HOLD METFORMIN - RECEIVED CONTRAST 20 ML VIAL IV SCH (09:00)
[2019-12-03] MEDS ORDERED: IOHEXOL 350 MG/ML 100 ML (OMNIPAQUE 350) VIAL IV ONE (09:00)
[2019-12-03 09:33] LABS: BILIRUBIN,URINE NEGATIVE (NEGATIVE); CLARITY,URINE CLEAR; COLOR,URINE YELLOW; GLUCOSE, URINE (UA) 3+ (NEGATIVE); KETONES,URINE NEGATIVE (NEGATIVE); LEUKOCYTE ESTERASE ,URINE NEGATIVE (NEGATIVE); NITRITE,URINE NEGATIVE (NEGATIVE); PROTEIN,URINE NEGATIVE (NEGATIVE)
--- NOTE | 2019-12-03 09:37 | Diagnostic Imaging Report ---
PROCEDURE: CT angiography of the head and CT angiography of the neck with and without contrast. TECHNIQUE: Contiguous noncontrast images were obtained from the skull base through the vertex. After intravenous contrast administration, helical CT angiography of the neck was performed. Source data was reformatted into 3D MIP projections. Delayed post contrast acquisition was also obtained. Auto Exposure Controls were utilized during the CT exam to meet ALARA standards for radiation dose reduction. INDICATION: Right-sided numbness and weakness. Concern for stroke. Comparison: CT head performed earlier the same date. FINDINGS: CTA Neck: The visualized portions of the aortic arch demonstrate no evidence of aneurysm or dissection. Note is made of the origin of the left vertebral artery directly off the aortic arch. The brachiocephalic artery is normal in course and caliber. The right and left common carotid origins are unremarkable. The origin of the left subclavian artery is patent. The common carotid arteries and internal carotid arteries demonstrate a tortuous course. There is calcified atherosclerotic plaque in the bilateral carotid bulbs and proximal internal carotid arteries without flow-limiting stenosis. No evidence of dissection in the carotid systems. The external carotid arteries are patent and unremarkable. The right vertebral artery is dominant. The origin of the right vertebral artery is seen and is unremarkable. The origin of the left vertebral artery is seen and is unremarkable. There is no focal stenosis seen within the neck. There is no dissection. The vertebral arteries are well visualized to up to the level of the basilar artery. The osseous structures of the cervical spine are unremarkable. Included views through the lung apices demonstrate no focal consolidation. CTA brain: Atherosclerotic plaque is seen in the doherty of the bilateral terminal internal carotid arteries without significant stenosis. No stenosis is seen in the bilateral anterior, middle, and posterior cerebral arteries. No evidence of aneurysm the [place]. In the posterior circulation, both of the vertebral arteries demonstrate calcified atherosclerotic plaque without focal stenosis. The right vertebral artery is dominant. The left vertebral artery functionally ends in PICA. Both the right and left PICA arteries are identified. The basilar artery is normal in course and caliber. The terminal branch vessels including the superior cerebellar arteries unremarkable. IMPRESSION: 1. No stenosis or aneurysm in the [place]. No evidence of large vessel occlusion. 2. No stenosis or dissection the bilateral carotid and vertebral arteries. Findings were called to the emergency department at 9:34 AM on 12/03/[address] Rizwan Kerr. Dictated by: Dictated on workstation # [id number]
[2019-12-03 09:51] LABS: RBC,URINE RARE /HPF
[2019-12-03 09:52] LABS: BACTERIA,URINE NEGATIVE /HPF; WBC,URINE RARE /HPF
[2019-12-03] MEDS ORDERED: VALACYCLOVIR 500 MG TAB (VALTREX) PO SCH (10:15)
[2019-12-03] MEDS ORDERED: predniSONE 20 MG TAB PO ONE (10:30)
--- OUTSIDE RECORDS SUMMARY | 2019-12-03 11:09 | XMS REPORT | Continuity of Care Document ---
Author Organization Unknown Address Unknown Phone Unavailable Allergies Active Description Code Type Severity Reaction Onset Reported/Identified Relationship to Patient Clinical Status Yes No Known Drug Allergies [id number] Drug Allergy Unknown N/A 10/07/2019 Medications There [...] OF GROWTH Isolated NRG Bacterial blood culture [id number] NRG Influenza virus A and B antigen [...] 10/07/19 08:07 Bacterial blood culture NG NRG Complete blood count (CBC) with automate d white blood cell (WBC) differential - 12/03/19 07:39 Blood leukocytes automated count (number/volume) 7.9 10*3/uL 4.3-11.0 Blood erythrocytes automated count (number/volume) 4.88 10*6/uL 4.35-5.85 Venous blood hemoglobin measurement (mass/volume) 16.6 g/dL 13.3-17.7 Blood hematocrit (volume fraction) 48 % 40-54 Automated erythrocyte mean corpuscular volume 99 [ foz_us] 80-99 Automated erythrocyte mean corpuscular h emoglobin (mass per erythrocyte) 34 pg 25-34 Automated erythrocyte mean corpuscular h emoglobin concentration measurement (mass/volume) 35 g/dL 32-36 Automated erythrocyte distribution width ratio 13. 7 % 10.0- 14.5 Automated blood platelet count (count/volume) 240 10*3/uL 130-400 Automated blood platelet mean volume measurement 11.1 [foz_us] 7.4-10.4 Automated blood neutrophils/100 leukocytes 35 % 42-75 Automated blood lymphocytes/100 leukocytes 45 % 12-44 Blood monocytes/100 leukocytes 13 % 0-12 Automated blood eosinophils/100 leukocytes 4 % 0-10 Automated blood basophils/100 leukocytes 2 % 0-10 Blood neutrophils automated count (number/volume) 2.8 10*3 1.8-7.8 Blood lymphocytes automated count (number/volume) 3.6 10*3 1.0-4.0 Blood monocytes automated count (number/volume) 1. 1 10*3 0.0-1.0 Automated eosinophil count 0.3 10*3/uL 0 .0-0.3 Automated blood basophil count (count/volume) 0.1 10*3/uL 0.0-0.1 PT panel in platelet poor plasma by coag ulation assay - 12/03/19 07:39 Prothrombin time (PT) in platelet poor plasma by coagu lation assay 13.9 s 12.2-14.7 INR in platelet poor plasma or blood by coagulation as say 1.0 0.8-1.4 Activated partial thromboplastin time (a PTT) in platelet poor plasma bycoagulation assay - 12/03/19 07:39 Activated partial thromboplastin time (a PTT) in platelet poor plasma bycoagulation assay 31 s 24-35 Fibrin D-dimer FEU measurement in platel et poor plasma (mass/volume) - 12/03/19 07:39 Fibrin D-dimer FEU measurement in platelet poor plasma (mass/volume) 0.39 ug/mL 0.00-0.49 Comprehensive metabolic panel - 12/03/19 07:39 Serum or plasma sodium measurement (moles/volume) 135 mmol/L 135-145 Serum or plasma potassium measurement (moles/volume) 4.3 mmol/L 3.6-5.0 Serum or plasma chloride measurement (moles/volume) 105 mmol/L 98-107 Carbon dioxide 20 mmol/L 21-32 Serum or plasma anion gap determination (moles/volume) 10 mmol/L 5-14 Serum or plasma urea nitrogen measurement (mass/volume ) 23 mg/dL 7-18 Serum or plasma creatinine measurement (mass/volume) 1.01 mg/dL 0.60-1.30 Serum or plasma urea nitrogen/creatinine mass ratio 23 NRG Serum or plasma creatinine measurement w ith calculation of estimated glomerular filtration rate > NRG Serum or plasma glucose measurement (mass/volume) 240 mg/dL 70-105 Serum or plasma calcium measurement (mass/volume) 9.4 mg/dL 8.5-10.1 Serum or plasma total bilirubin measurement (mass/volu me) 0.6 mg/dL 0.1-1.0 Serum or plasma alkaline phosphatase jhon surement (enzymatic activity/volume) 91 U/L 40-136 Serum or plasma aspartate aminotransfera se measurement (enzymatic activity/volume) 109 U/L 5-34 Serum or plasma alanine aminotransferase measurement (enzymatic activity/volume) 98 U/L 0-55 Serum or plasma protein measurement (mass/volume) 8.5 g/dL 6.4-8.2 Serum or plasma albumin measurement (mass/volume) 3.6 g/dL 3.2-4.5 CALCIUM CORRECTED 9.7 mg/dL 8.5-10.1 Serum or plasma troponin i.cardiac measu rement (mass/volume) - 12/03/19 07:39 Serum or plasma troponin i.cardiac measurement (mass/v olume) < ng/mL <0.028 Capillary blood glucose measurement by g lucometer (mass/volume) - 12/03/19 07:46 Capillary blood glucose measurement by glucometer (mas s/volume) 252 mg/dL 70-110 Complete urinalysis with reflex to cultu re - 12/03/19 09:26 Urine color determination YELLOW NRG Urine clarity determination CLEAR NR G Urine pH measurement by test strip 6.0 5-9 Specific gravity of urine by test strip 1.015 1.016-1.022 Urine protein assay by test strip, [...] cou nt by microscopy (number/high power field) RARE NRG Automated urine sediment leukocyte count by microscopy (number/high power field) RARE NRG Bacteria detection in urine sediment by light microsco py NEGATIVE NRG Crystals detection in urine sediment by light microsco py NONE NRG Casts detection in urine sediment by light microscopy NONE NRG Mucus detection in urine sediment by light microscopy NEGATIVE NRG Complete urinalysis with reflex to culture NO NRG Encounters ACCT No. Visit Date/Time Discharge Status Pt. Type Provider Facility Loc./Unit Complaint [id number] 11/27/2019 08:11:00 020 23:59:59 CLS Outpatient AMARA BOCANEGRA MD [facility] RAD MEMORY LOSS [id number] 10/07/2019 06:59:00 020 10:35:00 DIS Emergency PRISCILLA DEWYE MD [facility] ER ABD PAIN,SOB,FE ELS COLD [id number] 12/04/2019 11:45:00 P EN Preadmit GARRISON SALOMON MD [facility] RAD RENAL CYST [id number] 12/03/2019 07:54:00 Document Registration
--- NOTE | 2019-12-03 11:15 | NUR ---
WAYNE GIBSON admitted to room 406-1, with an admitting diagnosis of R/O STROKE, on 12/03/19 from ED via , accompanied by .WAYNE GIBSON introduced to surroundings, call light, bed controls, phone, TV, temperature control, lights, meal times, smoking policy, visitor policy, side rail policy, bathrooms and showers. Patient Rights given to patient in the handbook. WAYNE GIBSON verbalizes understanding that [facility] is not responsible for the loss or damage to any personal effects or valuables that are kept in the patients posession during their hospitalization. WAYNE GIBSON verbalizes understanding of Interdisciplinary Patient Education. Patient and/or family were informed about the Rapid Response Team and its purpose.
[2019-12-03] MEDS ORDERED: ACETAMINOPHEN 325 MG TABLET PO PRN (11:45)
[2019-12-03] MEDS: ASPIRIN E.C. 325 MG (ECOTRIN) TABLET PO SCH (11:52)
[2019-12-03] MEDS: ACETAMINOPHEN 500 MG TAB (TYLENOL) PO PRN ×2 (11:52→19:49)
[2019-12-03] MEDS: LACTATED RINGERS 1,000 ML IV SCH (11:53)
[2019-12-03 12:00] VITALS: BP 160/106
[2019-12-03] MEDS ORDERED: inSUlin ASPART (NovoLOG) 1 UNIT/0.01 ML (CHARGE PER UNIT) SC SCH (12:00)
[2019-12-03 13:40] VITALS: BP 160/106
--- NOTE | 2019-12-03 14:52 | History & Physical ---
HPI History of Present Illness: 64 yo M that presented this AM after he was drinking coffee and it was spilling out of his mouth. Daughter had just got done making breakfast and noticed that he had drooping on the right side of his face. Patients states that prior to 7AM he was not having any concerns and this started abruptly. States that he was yao ving numbness on the right side of his face including his forehead. States that he has been having some numbness in his right fingertips. Denies any difficultly swallowing or speaking. No weakness in his arm or leg. Denies being sick. States that he has been taking his insulin and has not missed any recent doses. States that he has been going to a liver doctor for his Hep C and is hoping to start treatment soon. Source: patient, RN/MD Exam Limitations: no limitations Date seen by provider: Dec 03, 2019 Time Seen by Provider: 12:05 Attending Physician Angelia Wren MD PCP Fercho Henry MD Consult Date of Admission Dec 03, 2019 at 10:35 Home Medications Home Medications Reviewed patient Home Medication Reconciliation performed by pharmacy medication reconciliations sewer and drain technician and/or nursing. Patients Allergies have been reviewed. Allergies Coded Allergies: No Known Drug Allergies (Unverified , 10/07/19) VLN-Zwoisr-Pwicyl Hx Patient Social History Living Status: Lives with daughter Alcohol Use: Past History Recreational Drug Use: No Smoking Status: Former Smoker Recent Foreign Travel: No Contact w/other who traveled: No Recent Hopitalizations: No Recent Infectious Disease Expo: No Immunizations Up To Date Date of Influenza Vaccine: Jul 04, 2019 Past Medical History HTN Chronic Hep C Family Medical History Significant Family History: No Pertinent Family Hx Review of Systems ([facility]) Constitutional: no symptoms reported; No chills, No dizziness, No fever, No weakness EENTM: blurred vision, other (Right facial numbness and drooping) Respiratory: no symptoms reported; No cough, No dyspnea on exertion, No short of breath Cardiovascular: no symptoms reported; No chest pain, No edema, No palpitations Gastrointestinal: no symptoms reported; No abdominal pain, No loss of appetite, No nausea, No vomiting Genitourinary: no symptoms reported; No dysuria, No frequency, No hematuria Musculoskeletal: no symptoms reported; No back pain, No joint pain, No muscle pain Skin: no symptoms reported; No lesions, No rash Psychiatric/Neurological: Numbness, Tingling Reviewed Test Results Reviewed Test Results Lab Laboratory Tests Test 12/03/19 07:39 12/03/19 07:46 12/03/19 09:26 12/03/19 11:19 Range/Units White Blood Count 7.9 4.3-11.0 10^3/uL Red Blood Count 4.88 4.35-5.85 10^6/uL Hemoglobin 16.6 13.3-17.7 G/DL Hematocrit 48 40-54 % Mean Corpuscular Volume 99 80-99 FL Mean Corpuscular Hemoglobin 34 25-34 PG Mean Corpuscular Hemoglobin Concent 35 32-36 G/DL Red Cell Distribution Width 13.7 10.0-14.5 % Platelet Count 240 130-400 10^3/uL Mean Platelet Volume 11.1 H 7.4-10.4 FL Neutrophils (%) (Auto) 35 L 42-75 % Lymphocytes (%) (Auto) 45 H 12-44 % Monocytes (%) (Auto) 13 H 0-12 % Eosinophils (%) (Auto) 4 0-10 % Basophils (%) (Auto) 2 0-10 % Neutrophils # (Auto) 2.8 1.8-7.8 X 10^3 Lymphocytes # (Auto) 3.6 1.0-4.0 X 10^3 Monocytes # (Auto) 1.1 H 0.0-1.0 X 10^3 Eosinophils # (Auto) 0.3 0.0-0.3 10^3/uL Basophils # (Auto) 0.1 0.0-0.1 10^3/uL Prothrombin Time 13.9 12.2-14.7 SEC INR Comment 1.0 0.8-1.4 Activated Partial Thromboplast Time 31 24-35 SEC D-Dimer 0.39 0.00-0.49 UG/ML Sodium Level 135 135-145 MMOL/L Potassium Level 4.3 3.6-5.0 MMOL/L Chloride Level 105 98-107 MMOL/L Carbon Dioxide Level 20 L 21-32 MMOL/L Anion Gap 10 5-14 MMOL/L Blood Urea Nitrogen 23 H 7-18 MG/DL Creatinine 1.01 0.60-1.30 MG/DL Estimat Glomerular Filtration Rate > 60 BUN/Creatinine Ratio 23 Glucose Level 240 H 70-105 MG/DL Calcium Level 9.4 8.5-10.1 MG/DL Corrected Calcium 9.7 8.5-10.1 MG/DL Total Bilirubin 0.6 0.1-1.0 MG/DL Aspartate Amino Transf (AST/SGOT) 109 H 5-34 U/L Alanine Aminotransferase (ALT/SGPT) 98 H 0-55 U/L Alkaline Phosphatase 91 40-136 U/L Troponin I < 0.028 <0.028 NG/ML Total Protein 8.5 H 6.4-8.2 GM/DL Albumin 3.6 3.2-4.5 GM/DL Glucometer 252 H 206 H 70-110 MG/DL Urine Color YELLOW Urine Clarity CLEAR Urine pH 6.0 5-9 Urine Specific [place] 1.015 L 1.016-1.022 Urine Protein NEGATIVE NEGATIVE Urine Glucose (UA) 3+ H NEGATIVE Urine Ketones NEGATIVE NEGATIVE Urine Nitrite NEGATIVE NEGATIVE Urine Bilirubin NEGATIVE NEGATIVE Urine Urobilinogen 0.2 < = 1.0 MG/DL Urine Leukocyte Esterase NEGATIVE NEGATIVE Urine RBC (Auto) NEGATIVE NEGATIVE Urine RBC RARE /HPF Urine WBC RARE /HPF Urine Crystals NONE /LPF Urine Bacteria NEGATIVE /HPF Urine Casts NONE /LPF Urine Mucus NEGATIVE /LPF Urine Culture Indicated NO Physical Exam-([facility]) Physical Exam Vital Signs VS - Last 72 Hours, by Label 12/03/19 12/03/19 12/03/19 12/03/19 07:32 11:00 11:36 12:00 Temp 36.7 36.7 36.4 Pulse 100 93 92 Resp 16 18 16 B/P (MAP) 179/109 (132) 160/102 (132) 160/106 (124) Pulse Ox 93 95 95 O2 Delivery Room Air Room Air 12/03/19 13:40 Temp 36.4 Pulse 92 Resp 16 B/P (MAP) 160/106 Pulse Ox 95 O2 Delivery Room Air Capillary Refill : Less Than 3 Seconds General Appearance: WD/WN, no apparent distress HEENT: PERRL/EOMI, other (unable to close right ear lid) Neck: non-tender, full range of motion, supple Respiratory: chest non-tender, lungs clear, normal breath sounds, no respiratory distress, no accessory muscle use Cardiovascular: normal peripheral pulses, regular rate, rhythm, no edema, no murmur Gastrointestinal: normal bowel sounds, non tender, soft Back: no CVA tenderness, no vertebral tenderness Extremities: normal range of motion, non-tender, no pedal edema, no calf tenderness, normal capillary refill Neurologic/Psychiatric: alert, oriented x 3; No aphasia; facial droop (Right sided), other (numbness and tingling in right face including forehead, 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 (2) Farley's palsy Status: Acute (3) HTN (hypertension) Status: Chronic Assessment & Plan: - Started on Norvasc, continue to monitor blood pressure Qualifiers: Qualified Codes: I10 - Essential (primary) hypertension (4) Insulin dependent diabetes mellitus Status: Chronic Assessment & Plan: - A1c pending, Accuchecks AC/HS (5) Chronic hepatitis C Status: Chronic Qualifiers: Qualified Codes: B18.2 - Chronic viral hepatitis C (6) DVT prophylaxis Status: Acute Assessment & Plan: - Lovenox Clinical Quality Measures DVT/VTE Risk/Contraindication: Risk Factor Score Per Nursin RFS Level Per Nursing on Admit: 2=Moderate ANGELIA WREN MD Dec 03, 2019 14:52
[2019-12-03] MEDS: inSUlin ASPART (NovoLOG) 1 UNIT/0.01 ML (CHARGE PER UNIT) SC SCH ×2 (14:56→19:51)
[2019-12-03] MEDS: amLODIPine 5 MG (NORVASC) TAB PO SCH (14:56)
--- NOTE | 2019-12-03 15:00 | NUR ---
Pt stated to RN some small changes since admission. Pt stated that he call no longer drink through a straw without difficulty, prior to this assessment pt could. Pt also states that mouth numbness has increased as well as blurry vision in right eye. Pt also reports mild numbness in right hand, this was present when symptoms first occurred, went away and is coming back. This RN notified Dr. Lepe of changes. This RN ordered a speech consult on pt. 1520: Speech therapy left for the day but stated they would come in the morning to assess pt.
[2019-12-03] MEDS ORDERED: CELE200C PO (15:56)
[2019-12-03] MEDS ORDERED: METO-310 PO (15:56)
[2019-12-03] MEDS ORDERED: OMEP20CA18 PO (15:56)
[2019-12-03] MEDS ORDERED: LISI-552 PO (15:56)
[2019-12-03] MEDS ORDERED: EMPA10TA PO (15:56)
[2019-12-03] MEDS ORDERED: INSU100I23 SQ (15:58)
[2019-12-03] MEDS ORDERED: TMSL.4C PO (15:58)
[2019-12-03] MEDS ORDERED: INSU100I29 SQ (15:58)
[2019-12-03] MEDS ORDERED: MULT-178 PO (15:58)
[2019-12-03 16:00] VITALS: BP 160/109
--- NOTE | 2019-12-03 16:10 | NUR ---
SPOKE WITH THE PT (HE HAD A MED LIST) AND CALLED [facility] TO COMPLETE THE MED REC PT HAD LISTED PANELOR 25MG ON THE MED LIST- [facility] DID NOT HAVE A RECORD OF THIS IN THE PAST 18 MONTHS- FOR THAT REASON I LEFT IT OFF THE MED REC THE FOLLOWING ARE FILL DATES: 10-05-2019 OMEPRAZOLE 20MG #30 10-16-2019 CELEBREX 200MG #30 10-30-2019 FLOMAX 0.4MG #30/30DS 11-12-2019 LEVEMIR PENS #10 PENS 11-19-2019 HUMALOG PEN #15 PENS 11-24-2019 LISINOPRIL 20MG #30/30DS 11-24-2019 REGLAN 10MG #120/30DS 11-27-2019 JARDIANCE 10MG #30/30DS OTC MEDS: MTV
--- NOTE | 2019-12-03 16:33 | Diagnostic Imaging Report ---
INDICATION: Right-sided facial weakness. COMPARISON: Carotid Doppler study performed in the routine fashion with color flow Doppler and waveform analysis. FINDINGS: There is minor plaquing in the carotid territories bilaterally. Velocities and ratios are within normal range with ICA/CCA systolic velocity ratio of 1.16 on the right side and 0.64 on the left side. Both vertebrals show antegrade flow. Parameters based on the consensus panel Schulte-Scale and Doppler ultrasound criteria published July 2003, Radiology, Volume 229. DOPPLER (peak systolic velocity M/S Right Left CCA 0.54 0.73 ICA Proximal 0.43 0.38 ICA Mid 0.38 0.44 ICA Distal 0.63 0.46 RATIO 1.16 0.64 ECA 1.78 1.10 VERT 0.22 0.35 IMPRESSION: No significant carotid stenosis. Both vertebrals are patent. Dictated by: Dictated on workstation # [id number]
[2019-12-03] MEDS: VALACYCLOVIR 500 MG TAB (VALTREX) PO SCH (19:50)
[2019-12-03 20:00] VITALS: BP 157/96
[2019-12-04 00:22] VITALS: BP 164/98
[2019-12-04] MEDS: LACTATED RINGERS 1,000 ML IV SCH (01:18)
[2019-12-04 04:00] VITALS: BP 178/112
--- NOTE | 2019-12-04 04:58 | NUR ---
Called Dr. Lepe at this time. Informed her pt's BP of 178/114. Received order of lisinopril 20mg and to give scheduled amlodipine 5 mg early. Will continue to monitor.
[2019-12-04 05:03] LABS: BASOPHILS # (AUTO) 0.1 10^3/uL (0.0-0.1); BASOPHILS % (AUTO) 1 % (0-10); EOSINOPHILS # (AUTO) 0.1 10^3/uL (0.0-0.3); EOSINOPHILS % (AUTO) 1 % (0-10); HEMATOCRIT 44 % (40-54); HEMOGLOBIN 15.3 G/DL (13.3-17.7); LYMPHOCYTES # (AUTO) 4.6 X 10^3 (1.0-4.0); LYMPHOCYTES % (AUTO) 35 % (12-44); MEAN CORPUSCULAR HEMOGLOBIN 34 PG (25-34); MEAN CORPUSCULAR HGB CONC 35 G/DL (32-36); MEAN CORPUSCULAR VOLUME 97 FL (80-99); MEAN PLATELET VOLUME 12.1 FL (7.4-10.4); MONOCYTES # (AUTO) 1.5 X 10^3 (0.0-1.0); MONOCYTES % (AUTO) 12 % (0-12); NEUTROPHILS # (AUTO) 6.9 X 10^3 (1.8-7.8); NEUTROPHILS % (AUTO) 53 % (42-75); PLATELET COUNT 221 10^3/uL (130-400); RED CELL DISTRIBUTION WIDTH 13.3 % (10.0-14.5); WHITE BLOOD COUNT 13.2 10^3/uL (4.3-11.0)
[2019-12-04] MEDS: amLODIPine 5 MG (NORVASC) TAB PO SCH (05:17)
[2019-12-04 05:23] LABS: ALANINE AMINOTRANSFERASE 111 U/L (0-55); ALBUMIN 3.4 GM/DL (3.2-4.5); ALKALINE PHOSPHATASE 84 U/L (40-136); BILIRUBIN,TOTAL 0.7 MG/DL (0.1-1.0); BUN/CREATININE RATIO 24; CALCIUM 8.9 MG/DL (8.5-10.1); CARBON DIOXIDE 19 MMOL/L (21-32); CHLORIDE 107 MMOL/L (98-107); CHOLESTEROL 123 MG/DL (< 200); CREATININE SERUM 0.98 MG/DL (0.60-1.30); GFR ESTIMATED > 60; GLUCOSE 213 MG/DL (70-105); HDL CHOLESTEROL 33 MG/DL (40-60); POTASSIUM 4.4 MMOL/L (3.6-5.0); SODIUM 136 MMOL/L (135-145); TOTAL PROTEIN 8.4 GM/DL (6.4-8.2); TRIGLYCERIDES 84 MG/DL (<150); VLDL CHOLESTEROL 17 MG/DL (5-40)
[2019-12-04] MEDS: inSUlin ASPART (NovoLOG) 1 UNIT/0.01 ML (CHARGE PER UNIT) SC SCH ×2 (06:11→11:27)
[2019-12-04] MEDS: ACETAMINOPHEN 500 MG TAB (TYLENOL) PO PRN ×2 (06:11→12:28)
[2019-12-04 08:00] VITALS: BP 147/94
[2019-12-04] MEDS: ASPIRIN E.C. 325 MG (ECOTRIN) TABLET PO SCH (08:25)
[2019-12-04] MEDS: VALACYCLOVIR 500 MG TAB (VALTREX) PO SCH (08:25)
[2019-12-04] MEDS ORDERED: lisINopril 20 MG (PRINIVIL) TABLET PO SCH (09:00)
[2019-12-04] MEDS ORDERED: ENOXAPARIN 40 MG/0.4 ML (LOVENOX) SYR SC SCH (09:30)
--- NOTE | 2019-12-04 11:18 | ST Dysphagia Evaluation ---
Speech Evaluation-General Medical Diagnosis Farley's Palsy Onset Date: Dec 03, 2019 Therapy Diagnosis Therapy Diagnosis: Oropharyngeal Dysphagia Precautions Precautions: Aspiration Referral Referring Physician: Dr. Lepe Medical History Pertinent Medical History: DM, HTN, Smoking Reviewed History: Yes Social History Current Living Status: Other Family Speech PLF/Current-Dysphagia Prior Level of Function Patient lived at home with his daughter. Patient was independent for his daily needs. Subjective Patient was pleasant and compliant with the Bedside Dysphagia Evaluation. Cognitive Status Patient Orientation: Person, Place, Situation Oral Motor Skills Dentition: Natural, Tumbled, Stained Current Food Consistancy: Regular Ability to Follow Directions: Good Oral Expression Ability: Mild Impairment Face Facial Symmetry: Asymmetrical Right sided weakness, drooping Oral-Facial Assessment Oral-Facial Dentition: Normal Labial Seal Description: Droops Right, Poor Coordination Smile: Droops Right Puff Cheeks: Reduced Strength Lingual Protrusion: Abnormal Lingual ROM: Abnormal Lingual Strength: Abnormal Pharynx Velopharyngeal Move.: Normal Volitional Dry Swallow: Yes Voluntary Cough: Yes Dysphagia Evaluation Consistencies Presented: Regular, Thin Liquid, Mechanical Soft, Pureed Patient has difficulty with straw suction, better with smaller one Oral Phase: Unable to Suck Straw, Right Pocketing Pharyngeal Phase: Multiple Swallow Attempts Piecemeal swallow Dietary Recommendations: Mechanical Soft Liquid Recommendations: Thin Swallowing Precautions: Alternate Liquids/Solids, Double Swallow, Decreased Bolus 1/2 Tsp, Liquids from Straw, Liquids from Spoon, Small Bites and Sips, Sitting Upright 90 Degrees, Sitting 90 Degrees 30 Post Intake Dysphagia Evaluation Summary Patient is a 64 year old man who was admitted to the hospital due to right sided drooping of his face and numbness in his right arm. The patient was evaluated at bedside for swallow function. The patient was given thin liquids via straw and is noted to have some difficulty with the larger straw. He is able to manipulate the smaller straw without difficulty. He was on a regular diet, however he was noted to have difficulty with manipulating the bolus. He was given puree, mechanical soft and regular textures at 1/2 tsp bite size. He demo piecemeal s wallow with mechanical soft and regular consistencies. Patient is recommended to be on a Dysphagia II diet level of mechanical soft and thin liquids. This information was given to his nurse, Misti and written on the white board in his room. Speech Short Term Goals Short Term Goals Short Term Goals 1) The patient will tolerate least restrictive diet without s/s of aspiration at 90% or greater. 2) Patient will utilize compensatory strategies as trained at 90% or greater with minimal cues. Speech Senior Care Goals Senior Care Goals The patient will maintain adequate nutrition/hydration via safe effective swallow function. Speech-Plan Patient/Family Goals Patient/Family Goals: The patient plans on returning to his home upon hospital discharge. Treatment Plan Speech Therapy Treatment Plan: Continue Plan of Care Treatment Duration: Dec 11, 2019 Frequency: 2 times per week Estimated Hrs Per Day: .25 hour per day Rehab Potential: Good Barriers to Learning: Patient's medical status Pt/Family Agrees to Plan: Yes Safety Risks/Education Teaching Recipient: Patient Teaching Methods: Demonstration, Discussion Response to Teaching: Verbalize Understanding, Return Demonstration Education Topics Provided: Safe oral intake, diet level Time Speech Therapy Time In: 08:15 Speech Therapy Time Out: 08:30 Total Billed Time: 15 Billed Treatment Time Esvin ALFREDO Aleman Dec 04, 2019 11:18
--- NOTE | 2019-12-04 11:40 | Diagnostic Imaging Report ---
PROCEDURE: MR imaging of the brain without contrast. TECHNIQUE: Multiplanar, multisequence MR imaging of the brain was performed without contrast. DATE: December 04, 2019. COMPARISON: CT angiography head and neck December 03, 2019. CT head December 03, 2019. HISTORY: 64-year-old male, right-sided weakness. Evaluation for stroke. FINDINGS: There is no restricted diffusion. There are no areas of abnormal intracranial susceptibility. There is proportional prominence of the ventricles and CSF spaces consistent with moderate cerebral volume loss. There is no abnormal extra axial fluid collection. There is no acute intracranial hemorrhage. There is no mass effect or midline shift. There are areas of T2 and FLAIR hyperintense signal in the periventricular and subcortical white matter most compatible with mild to moderate changes of chronic small vessel ischemic disease. There is normal aeration of the visualized paranasal sinuses and mastoid air cells. IMPRESSION: 1. No acute intracranial abnormality. 2. Moderate cerebral volume loss and mild to moderate changes of chronic small vessel ischemic disease. Dictated by: Dictated on workstation # [id number]
[2019-12-04] MEDS ORDERED: ARTIFICAL TEARS 0.4 ML UNIT DOSE (REFRESH PLUS) OS PRN (11:45)
[2019-12-04 12:00] VITALS: BP 153/103
[2019-12-04] MEDS ORDERED: amLODIPine 5 MG (NORVASC) TAB PO NR (12:15)
--- NOTE | 2019-12-04 13:17 | Discharge Summary ---
Diagnosis/Chief Complaint Date of Admission Dec 03, 2019 at 10:35 Date of Discharge Discharge Diagnosis Problems/Diagnosis: (1) Weakness on right side of face Assessment & Plan: - TIA vs Farley's palsy, symptoms are more consistent with farley's palsy, CT head and CTA normal, MRI scheduled for AM, started on steroids and anti virals for farley's palsy, Start daily ASA, Swallow study normal. Status: Acute (2) Farley's palsy Status: Acute (3) HTN (hypertension) Assessment & Plan: - Started on Norvasc, continue to monitor blood pressure Qualifiers: Qualified Codes: I10 - Essential (primary) hypertension Status: Chronic (4) Insulin dependent diabetes mellitus Assessment & Plan: - A1c pending, Accuchecks AC/HS Status: Chronic (5) Chronic hepatitis C Qualifiers: Qualified Codes: B18.2 - Chronic viral hepatitis C Status: Chronic (6) DVT prophylaxis Assessment & Plan: - Lovenox Status: Acute Chief Complaint/HPI Chief Complaint/HPI 64 yo M that presented this AM after he was drinking coffee and it was spilling out of his mouth. Daughter had just got done making breakfast and noticed that he had drooping on the right side of his face. Patients states that prior to 7AM he was not having any concerns and this started abruptly. States that he was having numbness on the right side of his face including his forehead. States that he has been having some numbness in his right fingertips. Denies any difficultly swallowing or speaking. No weakness in his arm or leg. Denies being sick. States that he has been taking his insulin and has not missed any recent doses. States that he has been going to a liver doctor for his Hep C and is hoping to start treatment soon. Discharge Summary-Simple/Stand Consultations Discharge Physical Examination Allergies: Coded Allergies: No Known Drug Allergies (Unverified , 10/07/19) Vitals & I&Os Vital Sign - Last 12Hours Date Time Temp Pulse Resp B/P (MAP) Pulse Ox O2 Delivery O2 Flow Rate FiO2 12/04/19 08:00 35.9 114 18 147/94 (111) 96 Room Air Intake and Output 12/04/19 00:00 Intake Total 1220 ml Balance 1220 ml Hospital Course See final discharge diagnosis. Discharge Instructions to patient/family Please see electronic discharge instructions given to patient. Discharge Medications Reviewed and agree with Discharge Medication list on patient's Discharge Instruction sheet Clinical Quality Measures DVT/VTE Risk/Contraindication: Risk Factor Score Per Nursin RFS Level Per Nursing on Admit: 2=Moderate VISHNU WREN MD Dec 04, 2019 13:17
[2019-12-04] MEDS ORDERED: VALA500T4 PO (13:27)
[2019-12-04] MEDS ORDERED: PRD50T PO (13:27)
[2019-12-04] MEDS ORDERED: AMLO10TA7 PO (13:27)
--- NOTE | 2019-12-04 13:28 | Discharge Summary ---
Discharge [facility] Reconcile Patient Problems Problems Reviewed?: Yes Discharge Medications New, Converted or Re-Newed RX: Transmitted to Pharmacy New Medications: Prednisone (Prednisone) 50 Mg Tab 50 MG PO DAILY, #7 TAB Amlodipine Besylate (Amlodipine Besylate) 10 Mg Tablet 10 MG PO DAILY, #30 TAB Valacyclovir HCl (Valtrex) 500 Mg Tablet 1000 MG PO BID, #10 TAB Continued Medications: Insulin Detemir (Levemir Flextouch) 100 Unit/1 Ml Insuln.pen 40 UNIT SQ BID, EA Insulin Lispro (Humalog Kwikpen) 100 Unit/1 Ml Insuln.pen 30 UNIT SQ TIDWM, EA Lisinopril (Lisinopril) 20 Mg Tablet 20 MG PO DAILY, TAB Metoclopramide HCl (Reglan) 10 Mg Tablet 10 MG PO QIDACHS, TAB Multivitamin (Multiple Vitamins) 1 Each Tablet 1 EACH PO DAILY, TAB Omeprazole (Omeprazole) 20 Mg Capsule.dr 20 MG PO DAILY PRN for HEARTBURN, CAP Tamsulosin HCl (Flomax) 0.4 Mg Cap 0.4 MG PO DAILY, CAP Discontinued Medications: Celecoxib (Celebrex) 200 Mg Capsule 200 MG PO DAILY, CAP Activity & Diet Discharge Diet: ADA Diet Activity as Tolerated: Yes Orders-Post D/C & Referrals Pneu Vac Indicated: Yes VISHNU WREN MD Dec 04, 2019 13:28
[2019-12-05] MEDS ORDERED: amLODIPine 10 MG (NORVASC) TAB PO SCH (09:00)
== END 2019-12-04 14:50 | disposition home or self-care (01) ==
LOC: EDUNIT# 07:31 → ER 07:33 → 4TH 10:35
PROVIDERS: ADMIT Family Medicine; ATTEND Family Medicine
DX: G51.0 Bell's palsy (principal); R13.12 Dysphagia, oropharyngeal phase; I10 Essential (primary) hypertension; E11.9 Type 2 diabetes mellitus without complications; Z79.4 Long term (current) use of insulin; B18.2 Chronic viral hepatitis C; Z79.51 Long term (current) use of inhaled steroids; Z87.891 Personal history of nicotine dependence; Z90.49 Acquired absence of other specified parts of digestive tract; F03.90 Unspecified dementia, unspecified severity, without behavioral disturbance, psychotic disturbance, mood disturbance, and anxiety
CPT/HCPCS: 36415; 70450; 70496; 70498; 70551; 71045; 80053; 80061; 81000; 82962; 83036; 84443; 84484; 85025; 85379; 85610; 85730; 93005; 93041; 93880; 96360; 96361; G0378

== ENCOUNTER → 2019-12-25 | Outpatient (CLI) | payer MEDICAID ==
[~2019-12-25] MED LIST changes: +AMLO10TA7 PO; +CELE200C PO; +EMPA10TA PO; +HOLD METFORMIN - RECEIVED CONTRAST 20 ML VIAL IV SCH; +INSU100I23 SQ; +INSU100I29 SQ; +IOHEXOL 350 MG/ML 100 ML (OMNIPAQUE 350) VIAL IV ONE; +LISI-552 PO; +METO-310 PO; +MULT-178 PO; +NS 100 ML (IVPB) BAG IV ONE; +OMEP20CA18 PO; +PRD50T PO; +TMSL.4C PO; +VALA500T4 PO
[2019-12-25 10:34] LABS: ALBUMIN 3.8 GM/DL (3.2-4.5); CHLORIDE 106 MMOL/L (98-107); POTASSIUM 3.9 MMOL/L (3.6-5.0); SODIUM 136 MMOL/L (135-145)
[2019-12-25 10:36] LABS: CALCIUM 9.8 MG/DL (8.5-10.1)
[2019-12-25 10:37] LABS: GLUCOSE 88 MG/DL (70-105); TOTAL PROTEIN 8.8 GM/DL (6.4-8.2)
[2019-12-25 10:38] LABS: CARBON DIOXIDE 21 MMOL/L (21-32)
[2019-12-25 10:39] LABS: BILIRUBIN,TOTAL 0.6 MG/DL (0.1-1.0)
[2019-12-25 10:40] LABS: ALKALINE PHOSPHATASE 80 U/L (40-136); CREATININE SERUM 0.93 MG/DL (0.60-1.30); GFR ESTIMATED > 60
[2019-12-25 10:41] LABS: BUN/CREATININE RATIO 28
[2019-12-25 10:43] LABS: ALANINE AMINOTRANSFERASE 126 U/L (0-55)
--- NOTE | 2019-12-25 12:35 | Diagnostic Imaging Report ---
EXAMINATION: CT Abdomen Pelvis with and without intravenous contrast. TECHNIQUE: Precontrast acquisitions were acquired through the abdomen and pelvis. Multiple contiguous axial images were obtained through the abdomen and pelvis after the administration of intravenous contrast. All CT scans use one or more of the following dose optimizing techniques: automated exposure control, MA and/or KvP adjustment based on a patient size and exam type, or iterative reconstruction. HISTORY: Followup renal cyst. No new symptoms. COMPARISON: CT abdomen and pelvis on 10/07/2019. FINDINGS: The heart is unremarkable. The included lung bases are clear. A hiatal hernia is seen containing fat and free fluid. Bilateral nonobstructing renal calculi are visualized, with the largest in the inferior pole of the right kidney measuring 4 mm and the largest in the inferior pole of the left kidney measuring 3 mm. No obstructing calculi or hydronephrosis. Multiple simple cortical cysts are seen bilaterally. No suspicious enhancing renal lesions are identified. No perinephric fat stranding is seen. Hepatomegaly is again seen with micronodular contour of the liver. No focal hepatic lesions are identified. The portal vein is patent. The gallbladder is unremarkable. No intra or extrahepatic biliary dilation is seen. No CT evidence of acute cholecystitis. The pancreas and adrenal glands have a normal appearance. The spleen is surgically absent. Mildly prominent lymph nodes are seen in the upper abdomen. The bowel loops are nondilated. There is no free fluid or free air. No acute osseous abnormalities. There is calcified aortic and iliac atherosclerotic plaque without aneurysm. The urinary bladder is unremarkable. There is no free air, loculated collection, or adenopathy in the pelvis. IMPRESSION: 1. Bilateral simple cortical cysts. No suspicious renal masses are seen. Bilateral nonobstructive calculi are present without evidence of obstructing calculi or hydronephrosis. No perinephric fat stranding is seen. 2. Hepatomegaly with micronodular contour of the liver, suggestive of cirrhosis. Recommend correlation with LFTs. 3. Hiatal hernia is present containing a small amount of free fluid and fat. This is unchanged compared to prior exam. Dictated by: Dictated on workstation # [id number]
== END ==
LOC: RAD 10:08
PROVIDERS: ATTEND Pediatrics
DX: N28.1 Cyst of kidney, acquired (principal); N20.0 Calculus of kidney; R16.0 Hepatomegaly, not elsewhere classified; K44.9 Diaphragmatic hernia without obstruction or gangrene
CPT/HCPCS: 36415; 74178; 80053

== ENCOUNTER 2020-01-29 07:38 | Outpatient (RCR) | payer MEDICAID ==
[~2020-01-29] VITALS: Ht 165.1 cm; Wt 79.5 kg
[~2020-01-29 07:38] MED LIST changes: +FURO-125 PO; -HOLD METFORMIN - RECEIVED CONTRAST 20 ML VIAL IV SCH; -IOHEXOL 350 MG/ML 100 ML (OMNIPAQUE 350) VIAL IV ONE; +LACT10SO PO; -NS 100 ML (IVPB) BAG IV ONE
[2020-02-02] MEDS ORDERED: PANT40TA2 PO (14:27)
== END 2020-01-29 16:00 | disposition still patient (30) ==
LOC: PREOP 07:38
PROVIDERS: ATTEND Surgery
DX: Z01.812 Encounter for preprocedural laboratory examination (principal)
CPT/HCPCS: 87635

== ENCOUNTER 2020-02-02 07:57 | Day surgery (SDC) | payer MEDICAID ==
[~2020-02-02] VITALS: Ht 165.1 cm; Wt 79.5 kg
[2020-02-02] MEDS ORDERED: LACTATED RINGERS 1,000 ML IV ONE ×2 (07:58→10:22)
[2020-02-02 08:00] VITALS: BP 136/90
--- OUTSIDE RECORDS SUMMARY | 2020-02-02 08:02 | XMS REPORT | Continuity of Care Document ---
Author Organization Unknown Address Unknown Phone Unavailable Allergies Active Description Code Type Severity Reaction Onset Reported/Identified Relationship to Patient Clinical Status Yes No Known Drug Allergies [id number] Drug Allergy Unknown N/A 10/07/2019 Medications There is no data. Problems Date Dx Coded Attending Type Code Diagnosis Diagnosed By 08/15/1599 NEVA SAENZ DO Ot Z01.812 ENCOUNTER FOR PREPROCEDURAL LABORATORY E 10/07/2019 PRISCILLA DEWEY MD, Ot E11.9 TYPE 2 DIABETES MELLITUS WITHOUT COMPLIC 10/07/2019 PRISCILLA DEWEY MD, Ot F03.90 UNSPECIFIED DEMENTIA WITHOUT BEHAVIORAL 10/07/2019 PRISCILLA DEWEY MD, Ot F31.9 BIPOLAR DISORDER, UNSPECIFIED 10/07/2019 PRISCILLA DEWEY MD Ot I10 ESSENTIAL (PRIMARY) HYPERTENSION 10/07/2019 PRISCILLA DEWEY MD Ot J06.9 ACUTE UPPER RESPIRATORY INFECTION, UNSPE 10/07/2019 PRISCILLA DEWEY MD, Ot K21.9 GASTRO-ESOPHAGEAL REFLUX DISEASE WITHOUT 10/07/2019 PRISCILLA DEWEY MD Ot R06.02 SHORTNESS OF BREATH 10/07/2019 PRISCILLA DEWEY MD Ot R74.8 ABNORMAL LEVELS OF OTHER SERUM ENZYMES 10/07/2019 PRISCILLA DEWEY MD Ot Z87.891 PERSONAL HISTORY OF NICOTINE DEPENDENCE 10/07/2019 PRISCILLA DEWEY MD Ot Z90.81 ACQUIRED ABSENCE OF SPLEEN 10/09/2019 PRISCILLA DEWEY MD, Ot E11.9 TYPE 2 [...] BOCANEGRA MD Ot R41 .3 OTHER AMNESIA 12/04/2019 VISHNU WREN MD Ot B18.2 CHRONIC VIRAL HEPATITIS C 12/04/2019 VISHNU WREN MD Ot E11.9 TYPE 2 DIABETES MELLITUS WITHOUT COMPLIC 12/04/2019 VISHNU WREN MD Ot F03.9 0 UNSPECIFIED DEMENTIA WITHOUT BEHAVIORAL 12/04/2019 VISHNU WREN MD Ot G51.0 THOMPSON'S PALSY 12/04/2019 VISHNU WREN MD Ot I10 ESSENTIAL (PRIMARY) HYPERTENSION 12/04/2019 VISHNU WREN MD Ot R13.1 2 DYSPHAGIA, OROPHARYNGEAL PHASE 12/04/2019 VISHNU WREN MD Ot Z79.4 COMPLIANCE AND CONTROL ANALYST (CURRENT) USE OF INSULIN 12/04/2019 VISHNU WREN MD Ot Z79.5 1 COMPLIANCE AND CONTROL ANALYST (CURRENT) USE OF INHALED STERO 12/04/2019 VISHNU WREN MD Ot Z87.8 91 PERSONAL HISTORY OF NICOTINE DEPENDENCE 12/04/2019 VISHNU WREN MD Ot Z90.4 9 ACQUIRED ABSENCE OF OTHER SPECIFIED PART 12/04/2019 VISHNU WREN MD Ot B18.2 CHRONIC VIRAL HEPATITIS C 12/04/2019 VISHNU WREN MD Ot E11.9 TYPE 2 DIABETES MELLITUS WITHOUT COMPLIC 12/04/2019 VISHNU WREN MD Ot F03.9 0 UNSPECIFIED DEMENTIA WITHOUT BEHAVIORAL 12/04/2019 VISHNU WREN MD Ot G51.0 THOMPSON'S PALSY 12/04/2019 VISHNU WREN MD Ot I10 ESSENTIAL (PRIMARY) HYPERTENSION 12/04/2019 VISHNU WREN MD Ot R13.1 2 DYSPHAGIA, OROPHARYNGEAL PHASE 12/04/2019 VISHNU WREN MD Ot Z79.4 [facility] (CURRENT) USE OF INSULIN 12/04/2019 VISHNU WREN MD Ot Z79.5 1 [facility] (CURRENT) USE OF INHALED STERO 12/04/2019 VISHNU WREN MD Ot Z87.8 91 PERSONAL HISTORY OF NICOTINE DEPENDENCE 12/04/2019 VISHNU WREN MD Ot Z90.4 9 ACQUIRED ABSENCE OF OTHER SPECIFIED PART 12/25/2019 AMARA BOCANEGRA MD Ot I67.82 CEREBRAL ISCHEMIA 12/25/2019 AMAAR BOCANEGRA MD Ot R41 .3 OTHER AMNESIA 12/28/2019 GARRISON SALOMON MD Ot K44 .9 DIAPHRAGMATIC HERNIA WITHOUT OBSTRUCTION 12/28/2019 GARRISON SALOMON MD Ot N20 .0 CALCULUS OF KIDNEY 12/28/2019 GARRISON SALOMON MD Ot N28 .1 CYST OF KIDNEY, ACQUIRED 12/28/2019 GARRISON SALOMON MD Ot R16 .0 HEPATOMEGALY, NOT ELSEWHERE CLASSIFIED 12/31/2019 GARRISON SALOMON MD Ot K44 .9 DIAPHRAGMATIC HERNIA WITHOUT OBSTRUCTION 12/31/2019 GARRISON SALOMON MD Ot N20 .0 CALCULUS OF KIDNEY 12/31/2019 GARRISON SALOMON MD Ot N28 .1 CYST OF KIDNEY, ACQUIRED 12/31/2019 GARRISON SALOMON MD Ot R16 .0 HEPATOMEGALY, NOT ELSEWHERE CLASSIFIED 01/04/2020 GARRISON SALOMON MD Ot K44 .9 DIAPHRAGMATIC HERNIA WITHOUT OBSTRUCTION 01/04/2020 GARRISON SALOMON MD Ot N20 .0 CALCULUS OF KIDNEY 01/04/2020 GARRISON SALOMON MD Ot N28 .1 CYST OF KIDNEY, ACQUIRED 01/04/2020 GARRISON SALOMON MD Ot R16 .0 HEPATOMEGALY, NOT ELSEWHERE CLASSIFIED 01/05/2020 GARRISON SALOMON MD Ot K44 .9 DIAPHRAGMATIC HERNIA WITHOUT OBSTRUCTION 01/05/2020 GARRISON SALOMON MD Ot N20 .0 CALCULUS OF KIDNEY 01/05/2020 GARRISON SALOMON MD Ot N28 .1 CYST OF KIDNEY, ACQUIRED 01/05/2020 GARRISON SALOMON MD Ot R16 .0 HEPATOMEGALY, NOT ELSEWHERE CLASSIFIED Procedures There is no data. Results Test [...] OF GROWTH Isolated NRG Bacterial blood culture [id number] [facility] Influenza virus A and B antigen detectio [...] urinalysis with reflex to culture NO NRG Capillary blood glucose measurement by g lucometer (mass/volume) - 12/03/19 11:19 Capillary blood glucose measurement by glucometer (mas s/volume) 206 mg/dL 70-110 Capillary blood glucose measurement by g lucometer (mass/volume) - 12/03/19 14:50 Capillary blood glucose measurement by glucometer (mas s/volume) 253 mg/dL 70-110 Capillary blood glucose measurement by g lucometer (mass/volume) - 12/03/19 19:39 Capillary blood glucose measurement by glucometer (mas s/volume) 238 mg/dL 70-110 Complete blood count (CBC) with automate d white blood cell (WBC) differential - 12/04/19 04:25 Blood leukocytes automated count (number/volume) 13.2 10*3/uL 4.3-11.0 Blood erythrocytes automated count (number/volume) 4.56 10*6/uL 4.35-5.85 Venous blood hemoglobin measurement (mass/volume) 15.3 g/dL 13.3-17.7 Blood hematocrit (volume fraction) 44 % 40-54 Automated erythrocyte mean corpuscular volume 97 [ foz_us] 80-99 Automated erythrocyte mean corpuscular h emoglobin (mass per erythrocyte) 34 pg 25-34 Automated erythrocyte mean corpuscular h emoglobin concentration measurement (mass/volume) 35 g/dL 32-36 Automated erythrocyte distribution width ratio 13. 3 % 10.0- 14.5 Automated blood platelet count (count/volume) 221 10*3/uL 130-400 Automated blood platelet mean volume measurement 12.1 [foz_us] 7.4-10.4 Automated blood neutrophils/100 leukocytes 53 % 42-75 Automated blood lymphocytes/100 leukocytes 35 % 12-44 Blood monocytes/100 leukocytes 12 % 0-12 Automated blood eosinophils/100 leukocytes 1 % 0-10 Automated blood basophils/100 leukocytes 1 % 0-10 Blood neutrophils automated count (number/volume) 6.9 10*3 1.8-7.8 Blood lymphocytes automated count (number/volume) 4.6 10*3 1.0-4.0 Blood monocytes automated count (number/volume) 1. 5 10*3 0.0-1.0 Automated eosinophil count 0.1 10*3/uL 0 .0-0.3 Automated blood basophil count (count/volume) 0.1 10*3/uL 0.0-0.1 Comprehensive metabolic panel - 12/04/19 04:25 Serum or plasma sodium measurement (moles/volume) 136 mmol/L 135-145 Serum or plasma potassium measurement (moles/volume) 4.4 mmol/L 3.6-5.0 Serum or plasma chloride measurement (moles/volume) 107 mmol/L 98-107 Carbon dioxide 19 mmol/L 21-32 Serum or plasma anion gap determination (moles/volume) 10 mmol/L 5-14 Serum or plasma urea nitrogen measurement (mass/volume ) 24 mg/dL 7-18 Serum or plasma creatinine measurement (mass/volume) 0.98 mg/dL 0.60-1.30 Serum or plasma urea nitrogen/creatinine mass ratio 24 NRG Serum or plasma creatinine measurement w ith calculation of estimated glomerular filtration rate > NRG Serum or plasma glucose measurement (mass/volume) 213 mg/dL 70-105 Serum or plasma calcium measurement (mass/volume) 8.9 mg/dL 8.5-10.1 Serum or plasma total bilirubin measurement (mass/volu me) 0.7 mg/dL 0.1-1.0 Serum or plasma alkaline phosphatase jhon surement (enzymatic activity/volume) 84 U/L 40-136 Serum or plasma aspartate aminotransfera se measurement (enzymatic activity/volume) 126 U/L 5-34 Serum or plasma alanine aminotransferase measurement (enzymatic activity/volume) 111 U/L 0-55 Serum or plasma protein measurement (mass/volume) 8.4 g/dL 6.4-8.2 Serum or plasma albumin measurement (mass/volume) 3.4 g/dL 3.2-4.5 CALCIUM CORRECTED 9.4 mg/dL 8.5-10.1 Lipid 1996 panel - 12/04/19 04:25 Serum or plasma triglyceride measurement (mass/volume) 84 mg/dL <150 Serum or plasma cholesterol measurement (mass/volume) 123 mg/dL < 200 Serum or plasma cholesterol in HDL measurement (mass/v olume) 33 mg/dL 40-60 Cholesterol in LDL [mass/volume] in serum or plasma by direct assay 88 mg/dL 1-129 Serum or plasma cholesterol in VLDL measurement (mass/ volume) 17 mg/dL 5-40 THYROID STIMULATING HORMONE - 12/04/19 0 4:25 THYROID STIMULATING HORMONE 1.02 u[iU]/mL 0.35-4.94 Hemoglobin A1c measurement - 12/04/19 04 :25 Blood hemoglobin A1C measurement (mass/volume) 9.6 % 4.0-5.6 MEAN BLOOD GLUCOSE 229 % <=126 Capillary blood glucose measurement by g lucometer (mass/volume) - 12/04/19 10:35 Capillary blood glucose measurement by glucometer (mas s/volume) 313 mg/dL 70-110 Comprehensive metabolic panel - 12/25/19 10:20 Serum or plasma sodium measurement (moles/volume) 136 mmol/L 135-145 Serum or plasma potassium measurement (moles/volume) 3.9 mmol/L 3.6-5.0 Serum or plasma chloride measurement (moles/volume) 106 mmol/L 98-107 Carbon dioxide 21 mmol/L 21-32 Serum or plasma anion gap determination (moles/volume) 9 mmol/L 5-14 Serum or plasma urea nitrogen measurement (mass/volume ) 26 mg/dL 7-18 Serum or plasma creatinine measurement (mass/volume) 0.93 mg/dL 0.60-1.30 Serum or plasma urea nitrogen/creatinine mass ratio 28 NRG Serum or plasma creatinine measurement w ith calculation of estimated glomerular filtration rate > NRG Serum or plasma glucose measurement (mass/volume) 88 mg/dL 70-105 Serum or plasma calcium measurement (mass/volume) 9.8 mg/dL 8.5-10.1 Serum or plasma total bilirubin measurement (mass/volu me) 0.6 mg/dL 0.1-1.0 Serum or plasma alkaline phosphatase jhon surement (enzymatic activity/volume) 80 U/L 40-136 Serum or plasma aspartate aminotransfera se measurement (enzymatic activity/volume) 98 U/L 5-34 Serum or plasma alanine aminotransferase measurement (enzymatic activity/volume) 126 U/L 0-55 Serum or plasma protein measurement (mass/volume) 8.8 g/dL 6.4-8.2 Serum or plasma albumin measurement (mass/volume) 3.8 g/dL 3.2-4.5 CALCIUM CORRECTED 10.0 mg/dL 8.5-10.1 Coronavirus SARS-CoV-2 SO 2018 - 0 13:13 Coronavirus Ab [Units/volume] in Serum Negative Negative Encounters ACCT No. Visit Date/Time Discharge Status Pt. Type Provider Facility Loc./Unit Complaint [id number] 01/29/2020 07:38:00 020 16:00:00 DIS Outpatient NEVA SAENZ DO [facility] PREOP COLONOSCOPY/EGD [id number] 12/25/2019 10:08:00 23:59:59 CLS Outpatient GARRISON SALOMON MD [facility] RAD RENAL CYST [id number] 12/03/2019 10:35:00 14:50:00 DIS Inpatient HOLGER MITCHELL, VISHNU Cordoba [facility] 4TH R FACIAL WEAKNESS,THOMPSON PALSY [id number] 11/27/2019 08:11:00 23:59:59 CLS Outpatient AMARA BOCANEGRA MD [facility] RAD MEMORY LOSS [id number] 10/07/2019 06:59:00 10:35:00 DIS Emergency PRISCILLA DEWEY MD [facility] ER ABD PAIN,SOB,FE ELS COLD [id number] 02/02/2020 07:57:[address] Outpatient NEVA SAENZ DO [facility] ENDO SCREENING/EPIGASTRIC ABD MARGARITA N
[2020-02-02] MEDS ORDERED: PROPOFOL INJECTION 50 ML IV ONE (08:08)
[2020-02-02] MEDS ORDERED: HURRICAINE EXT TUBE (BENZOCAINE) XX PRN (08:15)
[2020-02-02] MEDS: LACTATED RINGERS 1,000 ML IV PRN ×2 (08:25→10:45)
--- NOTE | 2020-02-02 11:34 | Progress Note-Pre Operative ---
Pre-Operative Progress Note H&P Reviewed The H&P was reviewed, patient examined and no changes noted. Date Seen by Provider: February 02, 2020 Time Seen by Provider: 11:34 Date H&P Reviewed: February 02, 2020 Time H&P Reviewed: 11:34 Pre-Operative Diagnosis: epigastric abd pain, screening colonoscopy NEVA SAENZ DO February 02, 2020 11:34
[2020-02-02] MEDS ORDERED: MIDAZOLAM 2 MG/2 ML (VERSED) VIAL ONE (13:34)
[2020-02-02 14:25] VITALS: BP 102/68
--- NOTE | 2020-02-02 14:26 | Progress Note-Post Operative ---
Post-Operative Progess Note Surgeon (s)/Program Host (s) Surgeon NEVA SAENZ DO Program Host: na Pre-Operative Diagnosis epigastric abd pain, screening colonoscopy Post-Operative Diagnosis gastritis, duodenitis, small hiatal hernia, colon polyp Procedure & Operative Findings Date of Procedure 02/02/20 Procedure Performed/Findings egd c biopsies, colonoscopy with hot bx polypectomy Anesthesia Type per hoop coiler Estimated Blood Loss Estimated blood loss (mL): scant Specimens/Packing Specimens Removed antrum, body, ge, transverse colon polyp NEVA SAENZ DO February 02, 2020 14:26
[2020-02-02] MEDS ORDERED: PANT40TA2 PO (14:27)
--- NOTE | 2020-02-02 14:27 | Anesthesia-General Post-Op ---
MAC Patient Condition Mental Status/LOC: Same as Preop Cardiovascular: Satisfactory Nausea/Vomiting: Absent Respiratory: Satisfactory Pain: Controlled Complications: Absent Post Op Complications Complications None Follow Up Care/Instructions Patient Instructions None needed. Anesthesiology Discharge Order Discharge Order Patient is doing well, no complaints, stable vital signs, no apparent adverse anesthesia problems. No complications reported per nursing. MOOSE LAGUNA CRNA February 02, 2020 14:27
--- NOTE | 2020-02-02 14:28 | Discharge Inst-Simple/Standard ---
Discharge Inst-Standard Discharge Medications New, Converted or Re-Newed RX: RX on Chart Patient Instructions/Follow Up Plan of Care/Instructions/FU: 2 weeks Ruth Activity as Tolerated: Yes Discharge Diet: Regular Diet NEVA SAENZ DO February 02, 2020 14:28
[2020-02-02 14:30] VITALS: BP 127/83
[2020-02-02 14:35] VITALS: BP 136/84
[2020-02-02 14:40] VITALS: BP 136/84
[2020-02-02 15:13] VITALS: BP 125/76
--- NOTE | 2020-02-02 19:16 | OPERATIVE REPORT ---
DATE OF SERVICE: 02/02/2020 PREOPERATIVE DIAGNOSES: Epigastric abdominal pain, screening colonoscopy. POSTOPERATIVE DIAGNOSES: Gastritis, duodenitis, small hiatal hernia, colon polyp. PROCEDURE: EGD with biopsies, colonoscopy with hot biopsy polypectomy of the transverse colon. SURGEON: Neva Miranda DO ANESTHESIA: Per WHARF TENDER. ESTIMATED BLOOD LOSS: Scant. COMPLICATIONS: None. INDICATIONS: The patient is a 64-year-old male with epigastric abdominal pain and the need for screening colonoscopy. He understands risks and benefits of procedure and wished to proceed with procedure. Consent was signed in the chart. DESCRIPTION OF PROCEDURE: The patient was taken to the endoscopy suite, placed in left lateral recumbent position. Timeout was performed. Scope was inserted in mouth, down the esophagus, stomach and into the duodenum without difficulty. Erythematous changes present. No polyps, masses or ulcerations. Scope was then continuously retracted back into the stomach where it was further insufflated. Gastritis appearance. Biopsy of the antrum and body were obtained. No polyps, masses or ulcerations. Scope was retroflexed noting just a very small hiatal hernia, no other pathology. Scope was returned to its normal position, slowly withdrawn to distal esophagus. There was some slight erythematous changes. Biopsy of GE junction was obtained. Scope was then slowly retracted back to completely remove noting no other pathology. Digital rectal exam was performed. There were no palpable polyps, masses or ulcerations. Scope was inserted in the rectum, advanced all the way to cecum with minimal difficulty. Prep was adequate with irrigation and suction. Scope was then slowly retracted back. There were no polyps muscle, masses or ulcerations within the cecum, ascending colon. In the transverse colon, a small polyp was present, which hot biopsy polypectomy was performed. Scope was then slowly retracted back. No other polyps, masses or ulcerations within the remainder of the transverse, descending and sigmoid colon. Once in the rectum, scope was retroflexed noting no other pathology. Scope was returned to its normal position, slowly withdrawn until completely removed. The patient tolerated the procedure well without any complications. He was taken to recovery room in stable condition. RECOMMENDATIONS: The patient will stop omeprazole. Add Protonix 40 mg daily. We will see how his symptoms are doing and follow up on pathology results. The patient will need repeat colonoscopy in 5 years. Any issues before that be seen at that time. Job ID: [id number] DocumentID: [id number] Dictated Date: 02/02/2020 14:32:35 Prescription Benefit Specialist Date: 02/02/2020 19:15:37 Dictated By: NEVA MIRANDA DO
== END 2020-02-02 15:15 | disposition home or self-care (01) ==
LOC: ENDO 07:57
PROVIDERS: ATTEND Surgery
DX: Z12.11 Encounter for screening for malignant neoplasm of colon (principal); K63.5 Polyp of colon; K29.50 Unspecified chronic gastritis without bleeding; K44.9 Diaphragmatic hernia without obstruction or gangrene; E11.9 Type 2 diabetes mellitus without complications; I10 Essential (primary) hypertension; Z90.81 Acquired absence of spleen; Z79.899 Other long term (current) drug therapy; Z89.029 Acquired absence of unspecified finger(s)
CPT/HCPCS: 82962